=== PATIENT | female | born 1995 | race Caucasian/White ===

== ENCOUNTER → 2017-02-15 | Outpatient (CLI) | payer MEDICAID ==
--- NOTE | 2017-02-15 16:38 | REP ---
Clinical: Anatomical evaluation. Comparison: None . Findings: Examination demonstrates a single live intrauterine in transverse (head to the maternal right side) presentation. motion is identified by technologist. Placenta is noted anteriorly and grade zero without evidence for placenta previa or abruption. Amniotic fluid volume is normal. Cervix measures 4.8 cm in length and appears closed. No evidence for nuchal cord. Gestational age by current measurements 16 weeks 1 day with RAMON 08/01/2017. FHR equals 139 beats per minute. BPD 3.2 cm 16 weeks 0 days HC 12.6 cm 16 weeks 2 days AC 9.8 cm 15 weeks 6 days FL 2.1 cm 16 weeks 1 day HL 2.1 cm 16 weeks 3 days HC/AC ratio 1.28 Estimated weight 143 grams ( 39th percentile). Anatomical assessment demonstrates normal structures including cranium, lungs, four-chamber heart/ventricular outflow tracts, diaphragm, stomach and extremities. Impression: Single live intrauterine in transverse lie. While no gross abnormalities are identified, anatomical assessment is incomplete and should be reevaluated at 20-21 weeks. Signed by Raul Barraza MD 02/15/2017 04:30 P
== END ==
LOC: M LRY 14:10
PROVIDERS: ATTEND Nurse Practitioner Women's Health
DX: Z36 Encounter for antenatal screening of mother (principal)

== ENCOUNTER → 2017-04-03 | Outpatient (CLI) | payer MEDICAID, OTHER ==
--- NOTE | 2017-04-03 18:44 | REP ---
OB ULTRASOUND: Real-time sonographic evaluation of the gravid uterus is performed. There is a single living intrauterine gestation. The estimated gestational age is 22 weeks 6 days. EDC 08/01/2017. Today's measurements indicate appropriate growth. BPD 58 mm = 23 weeks 4 days, at the 70th percentile. HC 211 mm = 23 weeks 1 day, at the 60th percentile. AC 191 mm = 23 weeks 6 days, at the 71st percentile. Femur length 41 mm = 23 weeks 2 days, at the 62nd percentile. HC/AC ratio 1.10 within normal range. Estimated weight 6084 grams at the 68th percentile. heart rate 147 beats per minute. SEEN/GROSSLY UNREMARKABLE Lateral ventricles Yes Posterior fossa Yes Upper lip Yes Four-chamber heart Yes LVOT Yes RVOT Yes Stomach Yes Cord insertion Yes Three vessel cord Yes Kidneys Yes Bladder Yes Spine Yes position: Variable. Placenta: Anterior and grade 1 with no previa or abruption. Amniotic fluid: Within normal limits. Cervix is closed and measures 3.8 cm in length. Signed by Kuldip Hancock MD 04/04/2017 04:52 P
== END ==
LOC: M LRY 14:01
PROVIDERS: ATTEND Nurse Practitioner Women's Health
DX: Z33.1 Pregnant state, incidental (principal); Z36 Encounter for antenatal screening of mother

== ENCOUNTER → 2017-12-04 | Outpatient (REF) | payer OTHER | LOC: M SFHCLERA 15:51 | DX: J02.9 Acute pharyngitis, unspecified (principal) ==

== ENCOUNTER → 2018-02-08 | Outpatient (CLI) | payer OTHER ==
[2018-02-08 21:37] LABS: HCG, SERUM QUANTITATIVE 18253 MIU/ML
== END ==
LOC: M LAB 20:10
DX: Z34.81 Encounter for supervision of other normal pregnancy, first trimester (principal)
CPT/HCPCS: 84702

== ENCOUNTER → 2018-02-12 | Outpatient (CLI) | payer OTHER | LOC: M RAD 14:25 | DX: Z34.81 Encounter for supervision of other normal pregnancy, first trimester (principal); Z3A.01 Less than 8 weeks gestation of pregnancy | CPT/HCPCS: 76801 ==

== ENCOUNTER → 2018-05-21 | Outpatient (CLI) | payer OTHER | LOC: M RAD 11:25 | DX: Z34.82 Encounter for supervision of other normal pregnancy, second trimester (principal); Z3A.20 20 weeks gestation of pregnancy | CPT/HCPCS: 76811 ==

== ENCOUNTER → 2018-06-18 | Outpatient (CLI) | payer OTHER | LOC: M RAD 06:35 | DX: Z34.92 Encounter for supervision of normal pregnancy, unspecified, second trimester (principal); Z36.89 Encounter for other specified antenatal screening; Z3A.24 24 weeks gestation of pregnancy | CPT/HCPCS: 76816 ==

== ENCOUNTER 2019-03-19 22:35 | Emergency (ER) | payer OTHER ==
[~2019-03-19] VITALS: Ht 152.4 cm; Wt 75.9 kg
[2019-03-19] MEDS ORDERED: MIRE1IUD IU (22:48)
[2019-03-20] MEDS ORDERED: IBUP-1114 PO (00:17)
[2019-03-20 00:24] VITALS: BP 132/84
--- NOTE | 2019-03-20 08:13 | REP ---
CT Head without contrast HISTORY: Trauma COMPARISON: 09/13/2009 The examination is available for review at 08:10 a.m. 03/20/2019 There is no intraparenchymal hemorrhage, acute infarct, mass or midline shift. The ventricular system is normal in appearance. There is no extra cerebral collection. There is no fracture. The visualized sinuses are clear. IMPRESSION: There is no intracranial lesion. Electronically Signed by Harris Newton MD 03/20/2019 08:04 A
--- NOTE | 2019-03-20 08:23 | REP ---
MAXILLOFACIAL CT WITHOUT CONTRAST: HISTORY: Trauma. The examination is available for review at 8:15 a.m. 03/20/2019. Minimal mucosal thickening is present in the maxillary sinuses. The remaining sinuses are clear. The ostiomeatal units are patent. The middle and inferior nasal turbinates are partially paradoxical. There is frances bullosa of the right middle nasal turbinate. There is minimal deviation of the nasal septum to the left. A spur is present arising from the left side of the nasal septum. The spur abuts the left middle nasal turbinate. The cribriform plate, medial espino of the orbits and optic canals are intact. The carotid canals form a segment of the posterolateral espino of the sphenoid sinus. The sphenoid sinus septum inserts into the right internal carotid canal wall. There is no fracture. IMPRESSION: Sinus mucosal thickening as described above. Electronically Signed by Harris Newton MD 03/20/2019 08:30 A
== END 2019-03-20 00:25 | disposition home or self-care (01) ==
LOC: M ED 22:35
DX: S09.93XA Unspecified injury of face, initial encounter (principal); W50.0XXA Accidental hit or strike by another person, initial encounter; Y92.9 Unspecified place or not applicable; Y93.9 Activity, unspecified; Y99.9 Unspecified external cause status; Z87.891 Personal history of nicotine dependence; Z79.3 Long term (current) use of hormonal contraceptives

== ENCOUNTER 2019-04-26 20:51 | Emergency (ER) | payer OTHER ==
[~2019-04-26 20:51] MED LIST: IBUP-1114 PO; MIRE1IUD IU
[2019-04-26] MEDS ORDERED: KETOROLAC 30 MG/ML VIAL (J1885) IV ONE (21:15)
[2019-04-26] MEDS ORDERED: ONDANSETRON 4MG/2ML VIAL (J2405) IV ONE (21:15)
[2019-04-26 21:21] LABS: BASO # 0.1 10^3/uL (0.0-0.2); BASO % 0.7 % (0.0-1.0); EOS # 0.2 10^3/uL (0.0-0.50); EOS % 1.6 % (0.0-3.0); HEMATOCRIT 45.1 % (36.0-47.0); HEMOGLOBIN 14.7 g/dl (12.0-15.5); LYMPH # 2.8 10^3/uL (1.5-6.5); LYMPH % 29.6 % (24.0-44.0); MEAN CORPUSCULAR HEMOGLOBIN 30.1 pg (27.0-33.0); MEAN CORPUSCULAR HGB CONC 32.6 g/dl (32.0-36.5); MEAN CORPUSCULAR VOLUME 92.4 fl (80.0-96.0); MONO # 0.9 10^3/uL (0.0-0.8); MONO % 8.9 % (0.0-5.0); NEUTROPHILS # 5.6 10^3/uL (1.8-7.7); NEUTROPHILS % 58.9 % (36.0-66.0); PLATELET COUNT, AUTOMATED 219 10^3/uL (150-450); RED BLOOD COUNT 4.88 10^6/uL (4.00-5.40); WHITE BLOOD COUNT 9.6 10^3/uL (4.0-10.0)
[2019-04-26 21:42] LABS: ALBUMIN 3.6 GM/DL (3.2-5.2); ALT/SGPT 40 U/L (12-78); BILIRUBIN,DIRECT 0.2 MG/DL (0.0-0.2); BILIRUBIN,TOTAL 0.7 MG/DL (0.2-1.0); BLOOD UREA NITROGEN 13 MG/DL (7-18); CALCIUM LEVEL 8.7 MG/DL (8.5-10.1); CARBON DIOXIDE LEVEL 27 MEQ/L (21-32); CHLORIDE LEVEL 105 MEQ/L (98-107); CREATININE FOR GFR 0.82 MG/DL (0.55-1.30); GLOMERULAR FILTRATION RATE > 60.0 (>60); GLUCOSE, FASTING 93 MG/DL (70-100); LIPASE 184 U/L (73-393); SODIUM LEVEL 139 MEQ/L (136-145); TOTAL PROTEIN 7.7 GM/DL (6.4-8.2)
[2019-04-26 21:45] LABS: HCG, SERUM QUALITATIVE NEGATIVE (NEGATIVE)
[2019-04-26 22:31] VITALS: BP 109/59
[2019-04-26] MEDS ORDERED: DICY10CA13 PO (22:36)
[2019-04-26] MEDS ORDERED: DICYCLOMINE 10 MG CAP PO ONE (23:15)
--- NOTE | 2019-04-27 07:36 | REP ---
Clinical: Right upper quadrant pain. Technique: Real time perez scale ultrasound examination using curved array transducer. Findings: The gallbladder is moderately distended and demonstrates sludge and stones without wall thickening, pericholecystic fluid, or sonographic Glynn's sign. There is evidence for common bile duct dilatation to 8.8 mm. Liver and visualized pancreas are normal. The right kidney is unremarkable and without hydronephrosis measuring 11.2 x 4.0 x 3.8 cm. No ascites. Impression: Cholelithiasis and dilated common bile duct concerning for choledocholithiasis raising the possibility of early acute cholecystitis. Close clinical observation may be warranted. Electronically Signed by Raul Barraza MD 04/27/2019 07:28 A
--- NOTE | 2019-04-27 09:40 | ED PDOC ---
Post-Departure Follow-Up mahesh gonzalez and dolores faxed formal report of gb fu Kedar Bourgeois MD Apr 27, 2019 09:40
== END 2019-04-26 23:21 | disposition home or self-care (01) ==
LOC: EEVIPCON 20:51 → M ED 20:51
DX: K80.50 Calculus of bile duct without cholangitis or cholecystitis without obstruction (principal); R11.0 Nausea; Z79.3 Long term (current) use of hormonal contraceptives
CPT/HCPCS: 76705; 80048; 80076; 81001; 83690; 84703; 85025; 96374; 96375; 99284; J1885; J2405

== ENCOUNTER → 2019-05-08 | Outpatient (REF) | payer OTHER ==
[~2019-05-08] MED LIST changes: +DICY10CA13 PO
[2019-05-09 12:21] LABS: HEPATITIS B SURFACE ANTIGEN NEGATIVE (NEGATIVE); HEPATITIS C VIRUS ABY INDEX 0.1 INDEX (<0.8); HIV 1&2 SCREEN CENTAUR NEGATIVE (NEGATIVE)
[2019-05-10 00:07] LABS: HSV IgM TYPES 1&2 1.11 Ratio (0.00-0.90); HSV TYPE I IgG SPECIFIC <0.91 index (0.00-0.90)
== END ==
LOC: M LAB REF 12:32
PROVIDERS: ATTEND Nurse Practitioner Women's Health
DX: Z11.3 Encounter for screening for infections with a predominantly sexual mode of transmission (principal)

== ENCOUNTER 2019-06-19 06:02 | Day surgery (SDC) | payer OTHER ==
[~2019-06-19] VITALS: Ht 147.3 cm; Wt 75.7 kg
[~2019-06-19 06:02] MED LIST changes: +LR 1,000 ML IV SCH
[2019-06-19 06:52] LABS: URINE PREG TEST NEGATIVE (NEGATIVE)
[2019-06-19] MEDS ORDERED: BUPIVACAINE HCL 0.25% 30 ML VIAL As Ordered ONE (06:53)
[2019-06-19] MEDS ORDERED: CONRAY-60 60% 50ML VIAL (Q9961) As Ordered ONE (06:54)
[2019-06-19] MEDS ORDERED: ROCURONIUM BROMIDE 50 MG/5 ML VIAL As Ordered ONE ×2 (07:19→08:44)
[2019-06-19] MEDS ORDERED: ONDANSETRON 4MG/2ML VIAL (J2405) As Ordered ONE (07:19)
[2019-06-19] MEDS ORDERED: LIDOCAINE 2% INJ 100 MG/5 ML SDV (FOR ANES.) As Ordered ONE (07:19)
[2019-06-19] MEDS ORDERED: MIDAZOLAM INJ 2 MG/2 ML VIAL (J2250) As Ordered ONE (07:19)
[2019-06-19] MEDS ORDERED: dexameTHASONE 4 MG/ML 1ML VIAL (J1100) As Ordered ONE (07:19)
[2019-06-19] MEDS ORDERED: PROPOFOL 200 MG/20 ML VIAL As Ordered ONE (07:19)
[2019-06-19] MEDS ORDERED: fentaNYL 250 MCG/5 ML INJECTION (J3010) As Ordered ONE (07:19)
[2019-06-19] MEDS ORDERED: ACETAMINOPHEN 1000MG 100ML IV BTL (OFIRMEV) (J0131 PER 10MG) As Ordered ONE (07:55)
[2019-06-19] MEDS ORDERED: GLYCOPYRROLATE INJ 0.2 MG/ML 2 ML VIAL As Ordered ONE (07:55)
[2019-06-19] MEDS ORDERED: KETOROLAC 60 MG/2 ML VIAL (J1885) As Ordered ONE (07:55)
[2019-06-19] MEDS ORDERED: NEOSTIGMINE 10 MG/10 ML VIAL (J2710) As Ordered ONE (07:55)
[2019-06-19] MEDS ORDERED: MEPERIDINE INJ 25 MG/ML VIAL (J2175) IV PRN (10:30)
[2019-06-19] MEDS ORDERED: ACETAMINOPHEN TAB 650MG DOSE (2X325MG) PO PRN (10:30)
[2019-06-19] MEDS ORDERED: METOCLOPRAMIDE INJ 10MG/2ML VIAL (J2765) IV PRN (10:30)
[2019-06-19] MEDS ORDERED: fentaNYL 100 MCG/2 ML INJECTION (J3010) IV PRN (10:30)
[2019-06-19] MEDS ORDERED: LR 1,000 ML IV SCH (10:30)
[2019-06-19] MEDS ORDERED: ONDANSETRON 4MG/2ML VIAL (J2405) IV PRN (10:30)
[2019-06-19] MEDS ORDERED: IBUPROFEN 600 MG TAB PO PRN (10:30)
[2019-06-19] MEDS ORDERED: PERCOCET 5MG/325MG TAB PO PRN (10:30)
[2019-06-19 11:00] VITALS: BP 111/64
--- NOTE | 2019-06-19 13:07 | REP ---
C-ARM VIEWS DURING INTRAOPERATIVE CHOLANGIOGRAM: Multiple C-Arm views are performed during intraoperative cholangiogram. Contrast is injected into the common bile duct. The common bile duct as visualized demonstrates no filling defect. It does not appear to be dilated. No stricture is seen. Central intrahepatic ducts are unremarkable. There is contrast in the duodenum. 9 seconds fluoroscopy time utilized. Electronically Signed by Kuldip Hancock MD 06/19/2019 02:01 P
--- NOTE | 2019-06-21 15:06 | RO ---
DATE OF PROCEDURE: 06/19/2019 PREOPERATIVE DIAGNOSIS: Symptomatic gallstones and mildly dilated common bile duct. POSTOPERATIVE DIAGNOSIS: Symptomatic gallstones with normal intraoperative cholangiogram. PROCEDURE PERFORMED: Laparoscopic cholecystectomy with intraoperative cholangiogram with robotic assist. SURGEON: Dr. Loc Fortune. GEAR ROOM KEEPER: Rebeca Trimble, Nurse Practitioner who was essential for assistance with placement of the ports, changing of instruments and placement of the intraoperative cholangiogram catheter and closure of the incisions. ANESTHESIA: General. INDICATIONS FOR PROCEDURE: Patient is a 23-year-old woman who has had episodic upper abdominal pain. She was found to have cholelithiasis and her ultrasound suggested some enlargement of the common bile duct. She is now for a laparoscopic cholecystectomy with intraoperative cholangiogram, which will be performed as a robotic-assisted procedure. DESCRIPTION OF PROCEDURE: The patient was brought to the operating room and placed supine on the operating table. The patient's abdomen was prepped and draped in a sterile fashion. The left upper quadrant was selected as the site for the initial trocar placement. The incision was made after infiltration of local anesthesia, and this was utilized for the other incisions as well. A short transverse incision was made, and the Veress needle was inserted. After a positive hanging drop test, the abdomen was insufflated with carbon dioxide gas. An 8 mm robotic trocar was placed over a 5 mm scope, and this was advanced through the abdominal wall without difficulty. The scope was then inserted. Initial examination showed a normal appearing liver. Visualized portions of the stomach and small and large bowel were normal. Three additional 8 mm robotic ports were then placed just above the umbilicus, approximately 8 to 10 cm to the right and slightly below this and then in the far lateral right side of the abdomen slightly above the iliac crest. The [facility] patient cart was brought into position, and the camera port was docked and targeting took place. A hook cautery was placed through the left upper quadrant port and a Force Bipolar and grasping retractor were placed through the two right-sided ports. I then moved to the control console. At this point, the patient was tilted to a reverse Trendelenburg position and rolled to the left. The edge of the liver was elevated and the gallbladder was grasped and elevated. There were a few minor adhesions to the gallbladder, and these were lysed with the cautery. The gallbladder was elevated further and dissection was then begun at the gallbladder neck. The peritoneum was opened widely to expose the cystic duct and the cholecystic artery. The artery was doubly clipped with hemoclips and divided. The cystic duct was nicked. I attempted to pass the Arrow balloon cholangiogram catheter with Rebeca Trimble's assistance through the lateral right-sided robotic port but was unable to get the catheter threaded adequately into the cystic duct. Therefore, we undocked the robot and moved this away, and a 5 mm port was placed high in the right upper quadrant. Using laparoscopic instruments, the cholangiogram catheter was inserted into the opening in the cystic duct and the balloon was inflated. The balloon appeared to be located in the common bile duct below the juncture of the cystic duct and common hepatic duct. The patient was returned to a flat position and cholangiograms were obtained using fluoroscopy with the injection of 30% Conray. The initial injection showed excellent filling of the common bile duct with free flow of contrast into the duodenum without any definite filling defects identified. The balloon was then deflated and additional injection of contrast was made, which filled the common hepatic duct and the intrahepatic radicals, and, again, showed free flow of contrast through the common bile duct into the duodenum. No filling defects were identified. There was excellent clearance of contrast from the duct system on a followup imaging several seconds later. The fluoroscopy unit was moved aside and the cholangiogram catheter was removed. The patient was returned to a reverse Trendelenburg position and rolled slightly to the left. The robot was redocked, and I returned to the control console. The cystic duct was doubly clipped and divided. The gallbladder was then dissected free from the gallbladder bed using cautery dissection. Before the gallbladder was completely freed, the suction electrician chief was inserted and a small amount of spilled bile and blood was irrigated and aspirated from the right upper quadrant. The gallbladder was then completely freed. A specimen retrieval bag was inserted, and the gallbladder was placed within the retrieval pouch. The string of the pouch was retrieved through the supraumbilical site. The robot was then undocked, and the patient was returned to a flat position. The trocars were used to vent the abdomen, and these were then removed. I returned to the bedside and removed the gallbladder. This necessitated extending the fascial incision and skin incisions slightly to allow passage of a 1-1/2 cm stone. The fascia was then closed with interrupted simple sutures of #2-0 Vicryl. The wounds were infiltrated with some additional 0.25% Marcaine. The skin incisions were all closed with buried Vicryl and Steri-Strips. Light dressings were applied. The patient tolerated the procedure well without apparent complication. She was awakened in the operating room, extubated and moved to the recovery room in stable condition.
== END 2019-06-19 11:13 | disposition home or self-care (01) ==
LOC: M SDC 06:02
PROVIDERS: ATTEND Surgery
DX: K80.10 Calculus of gallbladder with chronic cholecystitis without obstruction (principal); K21.9 Gastro-esophageal reflux disease without esophagitis; Z79.899 Other long term (current) drug therapy
CPT/HCPCS: 47563; 74300; 84703; 88304; J0131; J1100; J1885; J2250; J2405; J2710; J3010; Q9961

== ENCOUNTER 2020-05-13 04:00 | Emergency (ER) | payer OTHER ==
[~2020-05-13] VITALS: Ht 149.9 cm; Wt 84.6 kg
[2020-05-13 04:00] VITALS: BP 136/75
[~2020-05-13 04:00] MED LIST changes: -LR 1,000 ML IV SCH
[2020-05-13 04:41] LABS: BASO # 0.1 10^3/uL (0.0-0.2); BASO % 0.5 % (0.0-1.0); EOS # 0.2 10^3/uL (0.0-0.5); EOS % 1.8 % (0.0-3.0); HEMATOCRIT 42.2 % (36.0-47.0); HEMOGLOBIN 13.9 g/dl (12.0-15.5); LYMPH # 3.2 10^3/uL (1.5-5.0); LYMPH % 29.1 % (24.0-44.0); MEAN CORPUSCULAR HEMOGLOBIN 30.4 pg (27.0-33.0); MEAN CORPUSCULAR HGB CONC 32.9 g/dl (32.0-36.5); MEAN CORPUSCULAR VOLUME 92.3 fl (80.0-96.0); NEUTROPHILS # 6.6 10^3/uL (1.5-8.5); NEUTROPHILS % 59.3 % (36.0-66.0); PLATELET COUNT, AUTOMATED 203 10^3/uL (150-450); RED BLOOD COUNT 4.57 10^6/uL (4.00-5.40); WHITE BLOOD COUNT 11.1 10^3/uL (4.0-10.0)
[2020-05-13 05:11] LABS: ALBUMIN 3.4 GM/DL (3.2-5.2); BILIRUBIN,DIRECT 0.2 MG/DL (0.0-0.2); BILIRUBIN,TOTAL 0.6 MG/DL (0.2-1.0); TOTAL PROTEIN 7.2 GM/DL (6.4-8.2)
[2020-05-13] MEDS ORDERED: ISOVUE-370 76% 100ML VIAL As Ordered ONE (05:24)
[2020-05-13] MEDS ORDERED: KETOROLAC 30 MG/ML 1ML VIAL IV ONE (05:30)
--- NOTE | 2020-05-13 06:05 | REPVR ---
PROCEDURE INFORMATION: Exam: CT Abdomen And Pelvis With Contrast Exam date and time: 05/13/2020 5:18 AM Age: 24 years old Clinical indication: Abdominal pain; Localized; Left lower quadrant (llq); Additional info: Llq abd pain TECHNIQUE: Imaging protocol: Computed tomography of the abdomen and pelvis with intravenous contrast. Radiation optimization: All CT scans at this facility use at least one of these dose optimization techniques: automated exposure control; mA and/or kV adjustment per patient size (includes targeted exams where dose is matched to clinical indication); or iterative reconstruction. Contrast material: ISO; Contrast volume: 100 ml; Contrast route: INTRAVENOUS (IV); COMPARISON: CT ABD PELVIS WITH CONTRAST 06/02/2016 9:02 PM FINDINGS: Lungs: There is minimal bilateral posterior dependent lung atelectasis. Liver: Normal. No mass. Gallbladder and bile ducts: The patient is status post cholecystectomy. There is no biliary ductal dilatation. Pancreas: Normal. No ductal dilation. Spleen: Normal. No splenomegaly. Adrenals: Normal. No mass. Kidneys and ureters: Normal. No hydronephrosis. Stomach and bowel: There is transverse, descending and sigmoid colon diverticulosis. There is thickening of the descending colon with surrounding stranding. Appendix: No evidence of appendicitis. Intraperitoneal space: Unremarkable. No free air. No significant fluid collection. Vasculature: Unremarkable. No abdominal aortic aneurysm. Lymph nodes: Unremarkable. No enlarged lymph nodes. Bladder: Unremarkable as visualized. Reproductive: IUD seen in place. Bones/joints: Unremarkable. No acute fracture. Soft tissues: Unremarkable. IMPRESSION: 1. Transverse, descending and sigmoid colon diverticulosis with CT findings of descending diverticulitis. No free peritoneal air or abscess formation seen at this time. 2. IUD in place. 3. Status post cholecystectomy. Electronically signed by: Francisco Amos On 05/13/2020 06:05:09 AM
[2020-05-13] MEDS ORDERED: CIPROFLOXACIN 500MG TABLET PO ONE (06:45)
[2020-05-13] MEDS ORDERED: metroNIDAZOLE (FLAGYL) 500 MG TAB PO ONE (06:45)
[2020-05-13] MEDS ORDERED: CIPR-249 PO (06:46)
[2020-05-13] MEDS ORDERED: FLAG500T PO (06:46)
== END 2020-05-13 06:53 | disposition home or self-care (01) ==
LOC: M ED 04:00
DX: K57.32 Diverticulitis of large intestine without perforation or abscess without bleeding (principal); K57.30 Diverticulosis of large intestine without perforation or abscess without bleeding; J98.11 Atelectasis; Z97.5 Presence of (intrauterine) contraceptive device
CPT/HCPCS: 74177; 80047; 80076; 83690; 84702; 85025; 93041; 96374; 99284; J1885; Q9967

== ENCOUNTER → 2020-09-22 | Outpatient (CLI) | payer OTHER ==
[~2020-09-22] MED LIST changes: +CIPR-249 PO; +FLAG500T PO
[2020-09-22 16:45] LABS: BASO % 0.5 % (0.0-1.0); EOS # 0.1 10^3/uL (0.0-0.5); EOS % 0.9 % (0.0-3.0); HEMATOCRIT 45.1 % (36.0-47.0); HEMOGLOBIN 14.6 g/dl (12.0-15.5); LYMPH # 3.1 10^3/uL (1.5-5.0); LYMPH % 41.5 % (24.0-44.0); MEAN CORPUSCULAR HEMOGLOBIN 31.1 pg (27.0-33.0); MEAN CORPUSCULAR HGB CONC 32.4 g/dl (32.0-36.5); MONO # 0.7 10^3/uL (0.0-0.8); MONO % 9.2 % (0.0-5.0); NEUTROPHILS # 3.6 10^3/uL (1.5-8.5); NEUTROPHILS % 47.8 % (36.0-66.0); PLATELET COUNT, AUTOMATED 237 10^3/uL (150-450); WHITE BLOOD COUNT 7.4 10^3/uL (4.0-10.0)
[2020-09-22 17:22] LABS: ALBUMIN 3.9 GM/DL (3.2-5.2); ALT/SGPT 24 U/L (12-78); BILIRUBIN,TOTAL 1.4 MG/DL (0.2-1.0); BLOOD UREA NITROGEN 11 MG/DL (7-18); CALCIUM LEVEL 9.3 MG/DL (8.5-10.1); CARBON DIOXIDE LEVEL 26 MEQ/L (21-32); CHLORIDE LEVEL 107 MEQ/L (98-107); CREATININE FOR GFR 0.92 MG/DL (0.55-1.30); FERRITIN 73 NG/ML (8-252); GLOMERULAR FILTRATION RATE > 60.0 (>60); GLUCOSE, FASTING 75 MG/DL (70-100); POTASSIUM SERUM 4.3 MEQ/L (3.5-5.1); SODIUM LEVEL 138 MEQ/L (136-145); TOTAL PROTEIN 7.7 GM/DL (6.4-8.2)
[2020-09-22 18:44] LABS: ERYTHROCYTE SEDIMENTATION RATE 6 mm/hr (0-20)
== END ==
LOC: M WUC 12:10
PROVIDERS: ATTEND Family Medicine
DX: D64.9 Anemia, unspecified (principal); K57.92 Diverticulitis of intestine, part unspecified, without perforation or abscess without bleeding

== ENCOUNTER → 2020-09-23 | Outpatient (REF) | payer OTHER | LOC: M SFHCLERA 14:51 | PROVIDERS: ATTEND Family Medicine | DX: K57.92 Diverticulitis of intestine, part unspecified, without perforation or abscess without bleeding (principal); D64.9 Anemia, unspecified ==

== ENCOUNTER → 2020-10-07 | Outpatient (CLI) | payer SELFPAY | LOC: M LABSMTC 13:00 | PROVIDERS: ATTEND Pediatrics | DX: Z20.828 Contact with and (suspected) exposure to other viral communicable diseases (principal) ==

== ENCOUNTER → 2020-10-18 | Outpatient (CLI) | payer OTHER ==
--- NOTE | 2020-10-19 12:49 | ECHO ---
DATE OF PROCEDURE: 10/18/2020 Age: 25 Gender: F Height: 149 cm Weight: 80 kg REFERRING PHYSICIAN: Linda Cabrera MD INDICATION: Palpitations MEASUREMENTS: IVS 0.8 LV 4.6 LVPW 0.8 LA 3.2 Aorta 2.8 RV 3.1 IVC 1.6 Mitral E wave velocity is 83; A wave 70 E prime septal 11.1 E prime lateral 15.0 FINDINGS: This study is of acceptable technical quality. Underlying sinus rhythm. Left ventricle has normal size and systolic function with estimated ejection fraction (EF) around 60-65%. No segmental wall motion abnormalities are appreciated. Right ventricle appears normal. Both atria appear normal. All four cardiac valves are reasonably well seen and appear normal. No pericardial effusion is noted. Inferior vena cava is of normal size and appropriately collapses with inspiration indicative of normal central venous pressure. Aortic root and aortic arch appear normal. Doppler interrogation reveals competent aortic valve. There is also competent mitral valve. There is trace tricuspid and pulmonic insufficiency. Calculated pulmonary artery pressure is within normal limits. Mitral inflow pattern and tissue Doppler imaging of mitral annulus revealed normal diastolic dysfunction. CONCLUSIONS: 1. Study is of acceptable technical quality; patient is in sinus rhythm. 2. Normal left ventricle size, systolic and diastolic function. 3. Normal right ventricle (RV) size. 4. No significant valvular disease. 5. Normal central venous pressure and likely normal pulmonary artery pressure. COMMENTS: Essentially normal echocardiogram. [facility]
== END ==
LOC: M CARPUL 10:39
PROVIDERS: ATTEND Family Medicine
DX: R00.2 Palpitations (principal)

== ENCOUNTER → 2020-12-18 | Outpatient (CLI) | payer OTHER | LOC: M LABSMTC 11:26 | PROVIDERS: ATTEND Anesthesiology | DX: Z01.812 Encounter for preprocedural laboratory examination (principal); Z20.822 Contact with and (suspected) exposure to COVID-19 ==

== ENCOUNTER 2020-12-23 06:47 | Day surgery (SDC) | payer OTHER ==
[~2020-12-23] VITALS: Ht 149.9 cm; Wt 83.5 kg
[~2020-12-23 06:47] MED LIST changes: +UNRESOLVED CLARIFICATION ENTRY XX SCH
--- OUTSIDE RECORDS SUMMARY | 2020-12-23 06:51 | CCD | Continuity of Care Document ---
Author Author Trang MADRID M.D. Organization Unknown Address [address], [address] [place] [address] Phone [phone] Care Team Providers Care Pecan Grower Name Role Phone Kuldip Boyce M.D. AUTM [phone] Linda Cabrera M.D. AUTM [phone] AUTM Unavailable Problems Description No Information Available Social History Type Date Description Comments Sex Unknown ETOH Use 1-3 glasses of wine per wk Recreational Drug Use Denies Drug Use Tobacco Use Start: Unknown End: Unknown Patient is a former smoker QUIT 2014 Allergies, Adverse Reactions, Alerts Description No Known Drug Allergies Medications Active Medications SIG Qnty Indications Ordering Provide r Date Valacyclovir HCL 1gm Tablets 1tab po qd Unknown Immunizations Description No Information Available Vital Signs Date Vital Result Comment 12/08/2020 9:57am BP Systolic 116 mmHg BP Diastolic 62 mmHg Height 59 inches 4'11" Weight 188.00 lb BMI (Body Mass Index) 38.0 kg/m2 Wilbur Body Weight 100 lb Weight 85.277 kg BSA (Body Surface Area) 1.80 m2 06/30/2019 10:37am BP Systolic 118 mmHg BP Diastolic 78 mmHg Height 59 inches 4'11" Weight 165.00 lb BMI (Body Mass Index) 33.3 kg/m2 Wilbur Body Weight 100 lb Weight 74.844 kg BSA (Body Surface Area) 1.70 m2 Results Description No Information Available Procedures Description No Information Available Medical Devices Description No Information Available Encounters Description No Information Available Assessments Description No Information Available Plan of Treatment No Information Available Functional Status Description No Information Available Mental Status Description No Information Available Referrals Refer to Reason for Referral Status Appt Date Uriel Madrid M.D. dx colitis 2018, diverticulitis 2 020, possible IBD Created 12/08/[address] [place] [address], [address] [place] [address] [phone]
--- OUTSIDE RECORDS SUMMARY | 2020-12-23 06:51 | CCD ---
Author Author [facility] Organization [facility] Address Unknown Phone Unavailable Care Team Providers Care Shopfitter Name Role Phone Linda Cabrera Unavailable PROBLEMS Type Condition ICD9-CM Code JSI75-IB Code Onset Dates Condition S tatus SNOMED Code Notes Problem Diverticulitis K57.92 Active 038827562 Problem Anxiety F41.9 Active 07803023 Problem Calculus of gallbladder without cholecystitis wi thout obstruction K80.20 Active 326071468 Problem Class 1 obesity without seri ous comorbidity in adult, unspecified BMI, unspecified obesity type E66.9 Active 571059578 ALLERGIES No Known Allergies ENCOUNTERS from 1994 to 2020-10-27 Encounter Location Date Provider Diagnosis [facility] [address] [place] [address], Lnida Cabrera IMMUNIZATIONS Vaccine Route Administration Date Status Influenza (6mo & up) Fluzone Unknown Nov 26, 2014 Adm inistered Influenza (6mo & up) Fluzone Unknown Oct 26, 2014 Ref used SOCIAL HISTORY Tobacco Use: Social History Observation Description Date Details (start date - stop date) Former Smoker Sex Assigned At : Social History Observation Description Sex Assigned At Unknown Education: Question Answer Notes Level of Education: High School Audit Question Answer Notes Total Score: 0 Interpretation: Alcohol Education Language: Question Answer Notes Languages spoken: Polish Bahai: Question Answer Notes Bahai 33 None Sexual Hx: Question Answer Notes Had sex in the last 12 months (vaginal, oral, or anal)? Yes Have you ever had an STD? No Prevention Strategies discussed: Other with Men only Use protection? No Drug and Alcohol Question Answer Notes Total Score: 0 Interpretation: No problems reported Alcohol Screening: Question Answer Notes Did you have a drink containing alcohol in the past year? Ye s Points 1 Interpretation Negative How often did you have six or more drinks on one occas ion in the past year? Never (0 points) How many drinks did you have on a typica l day when you were drinking in the past year? 1 or 2 (0 points) How often did you have a drink containing alcohol in t he past year? Monthly or less (1 point) Tobacco Use: Question Answer Notes Are you a: former smoker How long has it been since you last smoked? 1-5 years REASON FOR REFERRAL No Information VITAL SIGNS No information MEDICATIONS Medication SIG (Take, Route, Frequency, Duration) Notes Start Da te End Date Status Motrin 800 MG 1 tablet with food or milk as needed Orally Three malachi es a day Active Mirena Active Valacyclovir HCl 1 GM TAKE ONE TABLET BY MOUTH TWI CE A DAY FOR 5 DAYS THEN 1 PER DAY NEEDED Oral for 25 Active Tylenol Extra Strength 500 MG 1 tablet as needed Orally every 6 hrs Active PROCEDURES No Information RESULTS No Results REASON FOR VISIT Normal Echo MEDICAL (GENERAL) HISTORY Type Description Date Surgical History tubes in ears childhood Surgical History gall bladder removed 05/2019 Hospitalization History child 07/31/2017 Hospitalization History child 11/17/2015 Hospitalization History child 10/09/2018 Goals Section No Information Health Concerns No Information MEDICAL EQUIPMENT No Information MENTAL STATUS No Information FUNCTIONAL STATUS No Information ASSESSMENTS No Information PLAN OF TREATMENT No Information Insurance Providers Payer Name Payer Address Payer Phone Insured Name Patient Relati onship to Insured Coverage Start Date Coverage End Date [facility] [employer] [facility] [address] [facility] [phone] [place] self
--- OUTSIDE RECORDS SUMMARY | 2020-12-23 06:52 | CCD ---
Author Author [facility] Organization [facility] Address Unknown Phone Unavailable Care Team Providers Care Railroad Yard Worker Name Role Phone ROXY DO, K ANDREW Unavailable Unavailable ROXY DO, K ANDREW Unavailable Unavailable ROXY DO, K ANDREW Unavailable Unavailable Hadian, Lance Unavailable Unavailable Hadian, Lance Unavailable Unavailable Hadian, Lance Unavailable Unavailable Hadian, Lance Unavailable Unavailable Hadian, Lance Unavailable Unavailable Hadian, Lance Unavailable Unavailable Hadian, Lance Unavailable Unavailable Hadian, Lance Unavailable Unavailable Hadian, Lance Unavailable Unavailable Hadian, Lance Unavailable Unavailable Hadian, Lance Unavailable Unavailable Hadian, Lance Unavailable Unavailable Hadian, Lance Unavailable Unavailable Hadian, Lance Unavailable Unavailable Hadian, Lance Unavailable Unavailable Hadian, Lance Unavailable Unavailable Hadian, Lance Unavailable Unavailable Hadian, Lance Unavailable Unavailable Hadian, Lance Unavailable Unavailable Hadian, Lanec Unavailable Unavailable Hadian, Lance Unavailable Unavailable Hadian, Lance Unavailable Unavailable Hadian, Lance Unavailable Unavailable Hadian, Lance Unavailable Unavailable Hadian, Lance Unavailable Unavailable Hadian, Lance Unavailable Unavailable Hadian, Lance Unavailable Unavailable Hadian, Lance Unavailable Unavailable Hadian, Lance Unavailable Unavailable Hadian, Lance Unavailable Unavailable Hadian, Lance Unavailable Unavailable Hadian, Lance Unavailable Unavailable Hadian, Lance Unavailable Unavailable Re-disclosure Warning The records that you are about to access may contain information from federally-assisted alcohol or drug abuse programs. If such information is present, then the following federally mandated warning applies: This information has been disclosed to you from records protected by federal confidentiality rules (42 CFR part 2). The federal rules prohibit you from making any further disclosure of this information unless further disclosure is expressly permitted by the written consent of the person to whom it pertains or as otherwise permitted by 42 CFR part 2. A general authorization for the release of medical or other information is NOT sufficient for this purpose. The Federal rules restrict any use of the information to criminally investigate or prosecute any alcohol or drug abuse patient.The records that you are about to access may contain highly sensitive health information, the redisclosure of which is protected by Article 27-F of the [facility] Public Health law. If you continue you may have access to information: Regarding HIV / AIDS; Provided by facilities licensed or operated by the [facility] Office of Mental Health; or Provided by the [facility] Office for People With Developmental Disabilities. If such information is present, then the following [facility] mandated warning applies: This information has been disclosed to you from confidential records which are protected by state law. State law prohibits you from making any further disclosure of this information without the specific written consent of the person to whom it pertains, or as otherwise permitted by law. Any unauthorized further disclosure in violation of state law may result in a fine or care home sentence or both. A general authorization for the release of medical or other information is NOT sufficient authorization for further disc losure. Family History Family Member Name Family Member Gender Family Member Status Date o f Status Description Data Source(s) Unknown Male Problem [facility] Encounters Encounter Providers Location Date Indications Data Source(s ) Unknown [id number] [facility] [place] [address] 10/26/2020 12:00:00 AM EST eCW1 ([facility]) Outpatient CPSCAORT-LABEJN 07/30/2020 02:21:00 PM EDT [facility] Outpatient Attender: Lance Elena ED-LABPNP 0 12:43:00 PM EDT - 07/30/2020 12:44:00 PM EDT PRE CLINICAL [facility] PRE CLINICAL Patient discharged. Emergency Attender: ANDREW MUSTAFA DO ES1-ES 020 11:10:56 PM EDT - 05/26/2020 03:08:00 AM EDT [facility] Patient discharged. Medications Medication Brand Name Start Date Product Form Dose Route Admi nistrative Instructions Pharmacy Instructions Status Indications Reaction Description Data Source(s) 17.5-3.13-1.6 gram 12/15/2020 12:00:00 AM EST recon soln 354 DIRECTED FOR COLONOSCOPY PREP DIRECTED FOR COLONOSCOPY PREP SOLD: 12/20/2020 [facility] 5 mg 12/14/2020 12:00:00 AM EST tablet,delayed release (DR/EC) 4 TAKE 4 TABLETS BY MOUTH ONCE PER BOWEL PREP INSTRUCTIONS TAKE 4 TABLETS BY MOUTH ONCE PER BOWEL PREP INSTRUCTIONS SOLD: 12/20/2020 [facility] 800 mg 10/06/2020 12:00:00 AM EST tablet 30 TAKE ONE TABLET BY MOUTH THREE TIMES A DAY FOR 10 DAYS TAKE ONE TABLET BY MOUTH THREE TIMES A DAY FOR 10 DAYS SOLD: 10/06/2020 [facility] 1 gram 06/22/2020 12:00:00 AM EDT tablet 30 TAKE ONE TABLET BY MOUTH TWICE A DAY FOR 5 DAYS THEN 1 PER DAY NEEDED TAKE ONE TABLET BY MOUTH TWICE A DAY FOR 5 DAYS THEN 1 PER DAY NEEDED SOLD: 10/27/2020 [facility] 1 gram 06/22/2020 12:00:00 AM EDT tablet 30 TAKE ONE TABLET BY MOUTH TWICE A DAY FOR 5 DAYS THEN 1 PER DAY NEEDED TAKE ONE TABLET BY MOUTH TWICE A DAY FOR 5 DAYS THEN 1 PER DAY NEEDED SOLD: 06/22/2020 [facility] 1 gram 06/22/2020 12:00:00 AM EDT tablet 30 TAKE ONE TABLET BY MOUTH TWICE A DAY FOR 5 DAYS THEN 1 PER DAY NEEDED TAKE ONE TABLET BY MOUTH TWICE A DAY FOR 5 DAYS THEN 1 PER DAY NEEDED SOLD: 08/30/2020 [facility] 1 gram 06/22/2020 12:00:00 AM EDT tablet 30 TAKE ONE TABLET BY MOUTH TWICE A DAY FOR 5 DAYS THEN 1 PER DAY NEEDED TAKE ONE TABLET BY MOUTH TWICE A DAY FOR 5 DAYS THEN 1 PER DAY NEEDED SOLD: 07/24/2020 [facility] iopamidol (ISOVUE-370) 76 % 70 mL 10030 05/26/2020 12:51:49 AM E DT 70 mL Intravenous completed 70 mL, Intrav enous, Once in imaging, contrast, Starting Sun05/26/20 at 0051, For 1 dose [facility] Medication administered onsite ondansetron (ZOFRAN) injection 4 mg 07529-360-25 05/26/2020 12:10:0 0 AM EDT 4 mg Intravenous completed 4 mg, In travenous, Once, Sun05/26/20 at 0010, For 1 dose [facility] Medication administered onsite 1 gram 05/20/2020 12:00:00 AM EDT tablet 30 TAKE ONE TABLET BY MOUTH TWICE A DAY FOR 5 DAYS THEN 1 PER DAY NEEDED TAKE ONE TABLET BY MOUTH TWICE A DAY FOR 5 DAYS THEN 1 PER DAY NEEDED SOLD: 05/21/2020 [facility] 500 mg 05/13/2020 12:00:00 AM EDT tablet 14 TAKE ONE TABLET BY MOUTH TWICE A DAY TAKE ONE TABLET BY MOUTH TWICE A DAY SOLD: 05/13/2020 [facility] 500 mg 05/13/2020 12:00:00 AM EDT tablet 30 TAKE ONE TABLET BY MOUTH EVERY 8 HOURS TAKE ONE TABLET BY MOUTH EVERY 8 HOURS SOLD: 05/13/2020 [facility] 500 mg 06/11/2019 12:00:00 AM EDT tablet 10 TAKE ONE TABLET BY MOUTH TWICE A DAY FOR 5 DAYS TAKE ONE TABLET BY MOUTH TWICE A DAY FOR 5 DAYS SOLD: 2019 [facility] Insurance Providers Payer name Policy type / Coverage type Policy ID Covered democrat ID Covered democrat's relationship to jimenez Policy Jimenez Plan Information COUNTS INCLUDE 234 BEDS AT THE [facility] COMMUNITY PLAN [facility] [id number] SELF PAY ONLY [id number] SP [id number] [facility] [id number] S [id number] SELF PAY S [facility](MCA[facility]) O [id number] S [id number] [facility] MEDICAID [id number] Melisa [id number] 70 [facility] MEDICAID [id number] [facility] Health Maintenance Organization (HMO) [id number] Self [id number] ANSI-Medicaid [id number] ANSI-Medicaid [id number] [facility] [id number] ANSI-Medicaid [id number] ANSI-Medicaid [id number] [employer]HC COMMUNITY PLAN XIX -I/P [id number] 18 [id number] UNHC COMMUNITY PLAN XIX [id number] 18 [id number] UNHC COMMUNITY PLAN MCDO [id number] SP [id number] UNHC COMMUNITY PLAN MCDO [id number] SP [id number] MEDICAID [id number] SP [id number] [facility]) O [id number] S [id number] MEDICAID M [id number] S [id number] [place] PPO [id number] SP [id number] [place] BCBS B [id number] S [id number] BLUE CROSS BLUE SHIELD -I/P [id number] 18 [id number] BLUE CROSS BLUE SHIELD -O/P [id number] 18 [id number] MEDICAID [id number] SP [id number] MEDICAID M [id number] S [id number] [facility] [place] [facility]/806 [id number] SP [id number] [employer]ENEF[employer] ADMINIS [id number] SP [id number] [employer]ENEF[employer] ADMINS [id number] SP [id number] Problems, Conditions, and Diagnoses Code Display Name Description Problem Type Effective Dates Data Source(s) F41.9 [id number] Anxiety Problem 09/17/2020 12:00:00 AM ED T eCW1 ([facility]) K57.92 [id number] Diverticulitis Problem 09/16/2020 12:00:00 A M EDT eCW1 ([facility]) R07.9 Chest pain, unspecified Chest pain, unspecified Diagno sis 05/25/2020 11:10:56 PM EDT [facility] Surgeries/Procedures Procedure Description Date Indications Data Source(s) ECG ROUTINE ECG W/LEAST 12 LDS W/I&R ECG 12-LEAD STAT 11/2019 3:04 AM EDT 05/26/2020 07:04:42 AM EDT [facility] TROPONIN QUANTITATIVE POCT TROPONIN Routine 05/26/2020 2:31 AM EDT 05/26/2020 06:31:00 AM EDT [facility] CT ANGIOGRAPHY CHEST W/CONTRAST/NONCONTRAST CT ANGIOGRAM CHEST STAT 05/26/2020 12:59 AM EDT 05/26/2020 04:59:51 AM EDT [facility] POCT CLINITEK URINE HCG POCT CLINITEK URINE HCG Routine 05/25/2020 9:41 PM EDT 05/26/2020 01:41:00 AM EDT [facility] POCT CLINITEK URINE DIPSTICK POCT CLINITEK URINE DIPSTICK Routi ne 05/25/2020 9:38 PM EDT 05/26/2020 01:38:00 AM EDT [facility] XR CHEST PA AND LATERAL XR CHEST PA AND LATERAL STAT 0 9:32 PM EDT 05/26/2020 01:32:36 AM EDT [facility] TROPONIN QUANTITATIVE POCT TROPONIN Routine 05/25/2020 9:26 PM EDT 05/26/2020 01:26:00 AM EDT [facility] BLOOD COUNT COMPLETE AUTO&AUTO DIFRNTL WBC COUNT CBC AND DIFFER ENTIAL STAT 05/25/2020 9:18 PM EDT 05/26/2020 01:18:00 AM EDT [facility] COMPREHENSIVE METABOLIC PANEL COMPREHENSIVE METABOLIC PANEL STA T 05/25/2020 9:18 PM EDT 05/26/2020 01:18:00 AM EDT [facility] Results ID Date Data Source [id number] 12/18/2020 11:30:00 AM EST [facility] Name Value Range Interpretation Code Description Data Julia rce(s) Supporting Document(s) SARS coronavirus 2 RNA Not Detected [facility] This lab was ordered by [facility] and reported by [facility]. ID Date Data Source [id number] 10/07/2020 12:00:00 AM EST [facility] Name Value Range Interpretation Code Description Data Julia rce(s) Supporting Document(s) 2019-nCoV RNA XXX JUSTIN+probe-Imp [facility] This lab was ordered by [facility] and reported by [facility]. ID Date Data Source [id number] 08/01/2020 11:38:00 PM EDT [facility] COVID-19 Specimen Source NASOPHARYNGEAL Is Patient admitted or to be admitted? NFirst test? NOEmployed in healthcare? YESSymptomatic per CDC? NOHospitalized? NOICU? NOResident in congregated care? ex senior living, ARC NO? NO Name Value Range Interpretation Code Description Data Julia rce(s) Supporting Document(s) SARS-CoV-2 RNA Negative Normal (applies to non-numeric r esults) [facility] 2019-novel Coronavirus (2019-nCoV) not d etected by the qRT-PCR assay. Consider testing for other respiratory viruses or re-collecting for 2019-nCoV testing. Note: Optimum timing for peak viral levels during infections caused by 2019- nCoV have not been determined. Collection of multiple specimens from the same patient may be necessary to detect the virus. Limitations Positive results are indicative of active infection with SARS-CoV-2 but do not rule out bacterial infection or co-infection with other viruses. The agent detected may not be the definite cause of disease. In addition, detection of viral RNA may not indicate the presence of infectious virus or that SARS-CoV-2 is the causative agent for clinical symptoms. Negative results do not preclude SARS-CoV-2 infection and should not be used as the sole basis for patient management decisions. Negative results must be combined with clinical observations, patient history, and epidemiological information. False negative results may also occur if amplification inhibitors are present in the specimen or if inadequate numbers of organisms are present in the specimen. Optimum specimen types and timing for peak viral levels during infections caused by SARS-CoV-2 have not been fully determined. Collection of multiple specimens (types and time points) from the same patient may be necessary to detect the virus. The test was validated for use with upper respiratory specimens obtained via nasopharyngeal or oropharyngeal swabs in VTM, UTM, M4, M5, M6, saline, and MTM media. The performance of this test has not been established for other specimens. Specimens collected using other FDA recommended Specimen Collection Materials listed in the FDA COVID-19 [employer] communication (February 19, 2020) are processed with the caveat that they were not all validated for use with this test and the result must be interpreted in this context. Furthermore, a false negative results may occur if a specimen is improperly collected, transported or handled. If the virus mutates in the RT- PCR target region, SARS-CoV-2 may not be detected or may be detected less predictably. Inhibitors or other types of interference may produce a false negative result. An interference study evaluating the effect of common cold medications was not performed. This test is not FDA-cleared but its performance characteristics were established by our CLIA-certified, CAP-accredited, high complexity laboratory in accordance with CLIA regulations, [employer] (CAP) guidelines (Feb 12, 2020), and FDA guidance (Jan 24, 2020). This test is only for use under the Food and Drug Administration's Emergency Use Authorization. THIS IS A STATE REPORTABLE COMMUNICABLE DISEASE. Performing Lab Normal (applies to non-numeric r esults) [facility] COVID-19 Specimen Source: PRINTER APPRENTICE First test ?: N Employed in healthcare?: Y Symptomatic per CDC?: N Hospitalized?: N ICU?: N Resident in congregated care? ex senior living, ARC: N ?: N Please indicate the Triage TierN Test performed or referred by The [address] [address] ID Date Data Source [id number] 08/01/2020 11:08:00 PM EDT [facility] COVID-19 Specimen Source NASOPHARYNGEAL Is Patient admitted or to be admitted? NFirst test? NOEmployed in healthcare? YESSymptomatic per CDC? NOHospitalized? NOICU? NOResident in congregated care? ex senior living, ARC NO? NO Name Value Range Interpretation Code Description Data Julia rce(s) Supporting Document(s) SARS-CoV-2 RNA Negative Normal (applies to non-numeric r esults) [facility] 2019-novel Coronavirus (2019-nCoV) not d etected by the qRT-PCR assay. Consider testing for other respiratory viruses or re-collecting for 2019-nCoV testing. Note: Optimum timing for peak viral levels during infections caused by 2019- nCoV have not been determined. Collection of multiple specimens from the same patient may be necessary to detect the virus. Limitations Positive results are indicative of active infection with SARS-CoV-2 but do not rule out bacterial infection or co-infection with other viruses. The agent detected may not be the definite cause of disease. In addition, detection of viral RNA may not indicate the presence of infectious virus or that SARS-CoV-2 is the causative agent for clinical symptoms. Negative results do not preclude SARS-CoV-2 infection and should not be used as the sole basis for patient management decisions. Negative results must be combined with clinical observations, patient history, and epidemiological information. False negative results may also occur if amplification inhibitors are present in the specimen or if inadequate numbers of organisms are present in the specimen. Optimum specimen types and timing for peak viral levels during infections caused by SARS-CoV-2 have not been fully determined. Collection of multiple specimens (types and time points) from the same patient may be necessary to detect the virus. The test was validated for use with upper respiratory specimens obtained via nasopharyngeal or oropharyngeal swabs in VTM, UTM, M4, M5, M6, saline, and MTM media. The performance of this test has not been established for other specimens. Specimens collected using other FDA recommended Specimen Collection Materials listed in the FDA COVID-19 [employer] communication (February 19, 2020) are processed with the caveat that they were not all validated for use with this test and the result must be interpreted in this context. Furthermore, a false negative results may occur if a specimen is improperly collected, transported or handled. If the virus mutates in the RT- PCR target region, SARS-CoV-2 may not be detected or may be detected less predictably. Inhibitors or other types of interference may produce a false negative result. An interference study evaluating the effect of common cold medications was not performed. This test is not FDA-cleared but its performance characteristics were established by our CLIA-certified, CAP-accredited, high complexity laboratory in accordance with CLIA regulations, [employer] (CAP) guidelines (Feb 12, 2020), and FDA guidance (Jan 24, 2020). This test is only for use under the Food and Drug Administration's Emergency Use Authorization. THIS IS A STATE REPORTABLE COMMUNICABLE DISEASE. Performing Lab Normal (applies to non-numeric r esults) [facility] COVID-19 Specimen Source: PRINTER APPRENTICE First test ?: N Employed in healthcare?: Y Symptomatic per CDC?: N Hospitalized?: N ICU?: N Resident in congregated care? ex senior living, ARC: N ?: N Please indicate the Triage TierN Test performed or referred by The [address] [address] ID Date Data Source [id number] 05/26/2020 08:16:37 AM EDT [facility] Name Value Range Interpretation Code Description Data Julia rce(s) Supporting Document(s) EKG [facility] [id number] [file] [id number]/child therapist/cT [file] [id number]== ID Date Data Source [id number] 05/26/2020 03:05:33 AM EDT [facility] NT INFORMATIONPatient MRN Name Date of Age Gend*PT [id number] Santos Hodge 1995 24 years F EDPT Location Admission Date/Time Visit ID Attending [id number] 05/25/202309 --- Andrew Mustafa DO([id number]) EPI ID CSN Admitting Provider [id number] ---Progress Note:ECG 12 leadDate/Time: 05/25/2020 11:31 PMPerformed by: Andrew Mustafa, DOAuthorized by: GET Ramirez interpreted by ED Physician in the absence of a safety teacher: yesPrevious ECG: Previous ECG: UnavailableInterpretation: Interpretation: normalRate: ECG rate: 82 ECG rate assessment: normalRhythm: Rhythm: sinus rhythmST segments: ST segments: NormalBlaise Silva DO05/26/20 0305 Name Value Range Interpretation Code Description Data Julia rce(s) Supporting Document(s) ID Date Data Source [id number] 05/26/2020 03:04:23 AM EDT [facility] NT INFORMATIONPatient MRN Name Date of Age Gend*PT [id number] Santos Hodge 1995 24 years F EDPT Location Admission Date/Time Visit ID Attending [id number] 05/25/202309 --- Andrew Mustafa DO([id number]) EPI ID CSN Admitting Provider [id number] ---Provider in Triage NotesED Provider in Triage NotePatient Name: Santos Adams and Time of Assessment: 05/25/20, 8:50 PMChief ComplaintPatient presents with Chest Pain left side chest pain radiating to left arm on and off, numbness in arms juststarted, SOB, nausea, vomiting. cardiac family historyBrief HPI: 24 years female, intermittent L chest painNumbness in the L arm starting within the last hourOn Cipro and Flagyl for divertic currently, recently diagnosed with herpes andon valtrexPhysical exam:VSSAmbulatoryNontoxPreliminary Plan:Labs, EKG, CXRThis note was electronically signed by KATHY Ramirez, 05/25/20, 8:50 PM.ED CourseKATHY Ramirez05/25/20romeo Mustafa DO05/25/20ttestation signed by Andrew Mustafa DO at 05/25/2020 11:21 PM:ED MD Attestations:Attestation Type: Mid-Level: SUPERVISED APC: Patient initially seen, evaluatedby midlevel in triage, and testing ordered prior to physician evaluation. Basedsolely on information provided, care seems appropriate.Andrew Mustafa DO 11:20 PMHistory of Present IllnessChief ComplaintPatient presents with Chest Pain left side chest pain radiating to left arm on and off, numbness in arms juststarted, SOB, nausea, vomiting. cardiac family tobdznb80 years old Female presents to the ED c/o intermittent mild to moderate,nonradiating CP throughout the day beginning at 4pm. Pt also reports mild SOB.Pt reports that the CP was unchanged on exertion. Pt was on Flagil and Cipro fordiverticulitis recently and is just finishing those abx. Pt denies any pain ondeep inhalation. Denying any dyspnea on exertion. No treatments attemptedprior to arrival. Nothing improves symptoms, nothing worsens. Pt denies fever,chills, cough or cold symptoms. No numbness weakness. No bowel or bladderissues. Patient does admit to smoking, and is on the NuvaRing. There is aremote family cardiac history as a great grandfather had an apparent cardiacarrest at age 34 per family story mother and father are alive with nosignificant cardiac history.PMHx: diverticulitis.PCP ORDERING PROVIDER REQUESTEDHistory provided by: PatientLanguage card sorter used: NoHistoryHistory reviewed. No pertinent past medical history.History reviewed. No pertinent surgical history.History reviewed. No pertinent family history.Social HistoryTobacco Use Smoking status: Current Every Day Smoker Packs/day: 2.00 Types: Cigarettes Smokeless tobacco: Never UsedSubstance Use Topics Alcohol use: Not on file Drug use: Not on fileROSReview of SystemsConstitutional: Negative for chills and fever.HENT: Negative for congestion, rhinorrhea, tinnitus and trouble swallowing.Eyes: Negative for photophobia and pain.Respiratory: Positive for shortness of breath. Negative for apnea and stridor.Cardiovascular: Positive for chest pain. Negative for palpitations.Gastrointestinal: Negative for abdominal pain, blood in stool, diarrhea, nauseaand vomiting.Endocrine: Negative for polydipsia and polyphagia.Genitourinary: Negative for difficulty urinating, dysuria, flank pain andurgency.Musculoskeletal: Negative for back pain, joint sw elling, neck pain and neckstiffness.Skin: Negative for color change and rash.Neurological: Negative for dizziness, syncope, weakness and numbness.Hematological: Negative for adenopathy. Does not bruise/bleed easily.Psychiatric/Behavioral: Negative for confusion and suicidal ideas.Physical ExamBP 129/59 (BP Location: Left upper arm, Patient Position: Lying) | Pulse 62 |Temp 99.3 F (Tympanic) | Resp 16 | Ht 59" | Wt 83.5 kg | SpO2 97% | BMI37.16 kg/m Physical ExamConstitutional: She is oriented to person, place, and time. She appearswell-developed.HENT:Head: Normocephalic and atraumatic.Right Ear: Tympanic membrane normal.Left Ear: Tympanic membrane normal.Mouth/Throat: Uvula is midline and oropharynx is clear and moist. Nooropharyngeal exudate.Eyes: Pupils are equal, round, and reactive to light. Conjunctivae and EOM arenormal. No scleral icterus.Neck: Trachea normal, normal range of motion and full passive range of motionwithout pain. Neck supple. No neck rigidity. No tracheal d eviation and normalrange of motion present. No thyroid mass and no thyromegaly present.Cardiovascular: Normal rate, regular rhythm, S1 normal, S2 normal, normal heartsounds, intact distal pulses and normal pulses.No murmur heard.Pulmonary/Chest: Effort normal and breath sounds normal. No stridor. Norespiratory distress. She has no wheezes. She has no rales.Abdominal: Soft. Normal appearance and bowel sounds are normal. She exhibits noascites and no mass. There is no hepatosplenomegaly. There is no tenderness.There is no rigidity and no guarding.ObeseMusculoskeletal: Normal range of motion. She exhib its no edema.GOODE. Range Examiner equal bilatLymphadenopathy: She has no cervical adenopathy. She has no axillary adenopathy.Neurological: She is alert and oriented to person, place, and time. She hasnormal strength and normal reflexes. She displays normal reflexes. No cranialnerve deficit or sensory deficit.Reflex Scores: Patellar reflexes are 2+ on the right side and 2+ on the left side.CN II-XII grossly intact. No focal deficitSkin: Skin is warm, dry and intact. No rash noted. No cyanosis.Psychiatric: She has a normal mood and affect. Her speech is normal and behavioris normal.Nursing note and vitals reviewed.ED CourseProceduresMDMNumber of Diagnoses or Management OptionsChest pain, unspecified type:Amount and/or Complexity of Data ReviewedClinical lab tests: ordered and reviewedTests in the radiology section of CPT : reviewed and orderedTests in the medicine section of CPT : ordered and reviewedDecide to obtain previous medical records or to obtain history from someoneother than the patient: yesReview and summarize past medical records: yesIndependent visualization of images, tracings, or specimens: yesRisk of Complications, Morbidity, and/or MortalityPresenting problems: highDiagnostic procedures: highManagement options: highPatient ProgressPatient progress: stable 0300On recheck, the patient is awake, alert, oriented x3 neurologically intact. Shestates that her chest pain is totally resolved and she is denying any shortnessof breath. She is been able to ambulate about the department without anydifficulty. She denies any dizziness or weakness. Results were discussed atlength which included the negative CT angiogram of the chest as well as the 2negative troponins, as well as a normal EKG. Diagnosis and treatment plan werediscussed at length with the patient and family. They understand and agree withdischarge plan.This was electronically signed by Abi Ward acting as scribe forand in the presence of Andrew Mustafa DO, 05/26/20 3:02 AM.ED MD AttestationAttestation of Scribe Documentation: I personally performed the servicesdescribed in the documentation, reviewed the documentation recorded by thescribe in my presence and it accurately and completely records my words andactions.Andrew Mustafa, 3:02 David Mustafa, DO05/26/20 0304 Name Value Range Interpretation Code Description Data Julia rce(s) Supporting Document(s) ID Date Data Source [id number] 05/26/2020 02:43:28 AM EDT [facility] Name Value Range Interpretation Code Description Data Julia rce(s) Supporting Document(s) POC CTNI <0.01 ng/mL (0.01-0.07) L [facility] Less than 0.08: Myocardial injury unlike lyGreater than or equal to 0.08: Highlysuggestive of myocardial injuryCorrelation with rise and/or fall ofserial troponins, clinical symptoms,and ECG changes is necessary.PERFORMED BY [facility] CL[facility]ICAL STAFF ID Date Data Source [id number] 05/26/2020 01:08:54 AM EDT [address] [address]Pnmzcvm Name: Santos HollinsOB: 1995Sex: FOrdering Provider: ANDREW Fabian Prov: ANDREW Garrett Provider: Procedure Performed: CT ANGIOGRAM CHESTExam Date: 05/26/2020 00:51MRN: [id number] Number: [id number] Class: INFORMATION: Exam: CT Angiography Chest With Contrast Exam date and time: 05/26/2020 12:51 AM Age: 24 years old Clinical indication: Other: Pe suspected, low pretest prob TECHNIQUE: Imaging protocol: Computed tomographic angiography of the chest with intravenous contrast. 3D rendering: MIP and/or 3D reconstructed images were created by the technologist. Radiation optimization: All CT scans at this facility use at least one of these dose optimization techniques: automated exposure control; mA and/or kV adjustment per patient size (includes targeted exams where dose is matched to clinical indication); or iterative reconstruction. Contrast material: ISOVUE 370; Contrast volume: 70 ml; Contrast route: INTRAVENOUS (IV); COMPARISON: CR XR CHEST PA AND LATERAL 05/25/2020 8:51 PM FINDINGS: Pulmonary arteries: No pulmonary emboli. Aorta: Unremarkable. No aortic aneurysm. No aortic dissection. Lungs: Bilateral dependent atelectasis. No consolidation. No masses. Pleural space: Unremarkable. No pneumothorax. No pleural effusion. Heart: Unremarkable. No cardiomegaly. No pericardial effusion. Lymph nodes: Unremarkable. No enlarged lymph nodes. Bones/joints: No acute fracture. Soft tissues: Unremarkable. IMPRESSION: No pulmonary emoboli. Report electronically signed by: ILYA COLEMAN MD on 05/26/2020 01:08:54 Name Value Range Interpretation Code Description Data Julia rce(s) Supporting Document(s) ID Date Data Source [id number] 05/25/2020 11:21:02 PM EDT [facility] NT INFORMATIONPatient MRN Name Date of Age Gend*PT [id number] Santos Hodge 1995 24 years F EDPT Location Admission Date/Time Visit ID Attending [id number] 05/25/200 --- Andrew Mustafa DO([id number]) EPI ID CSN Admitting Provider [id number] ---Attestation signed by Andrew Mustafa DO at 05/25/2020 11:21 SERGIO SULLIVAN Attestations:Attestation Type: Mid-Level: SUPERVISED APC: Patient initially seen, evaluatedby midlevel in triage, and testing ordered prior to physician evaluation.Based solely on information provided, care seems appropriate.Andrew Mustafa DO 11:20 PM --ED Provider in Triage NotePatient Name: Santos Adams and Time of Assessment: 05/25/20, 8:50 PMChief ComplaintPatient presents with Chest Pain left side chest pain radiating to left arm on and off, numbness in arms juststarted, SOB, nausea, vomiting. cardiac family historyBrief HPI: 24 years female, intermittent L chest painNumbness in the L arm starting within the last hourOn Cipro and Flagyl for divertic currently, recently diagnosed with herpes andon valtrexPhysical exam:VSSAmbulatoryNontoxPreliminary Plan:Labs, EKG, CXRThis note was electronically signed by KATHY Ramirez, 05/25/20, 8:50 PM.ED CourseKATHY Ramirez05/25/20ritheo Mustafa, 05/25/202320 Name Value Range Interpretation Code Description Data Julia rce(s) Supporting Document(s) ID Date Data Source [id number] 05/25/2020 09:47:23 PM EDT [facility] Name Value Range Interpretation Code Description Data Julia rce(s) Supporting Document(s) POC URINE HCG (NEG) [facility] PERFORMED BY [facility] ID Date Data Source [id number] 05/25/2020 09:38:32 PM EDT [address] [address]Ombccql Name: SANTOS KEBEDEACEDOB: 1995Sex: FOrdering Provider: MERCEDES Johansen Prov: MERCEDES VACARefgisell Provider: Procedure Performed: XR CHEST PA AND LATERALExam Date: 05/25/2020 21:32MRN: [id number] Number: [id number] Class: EmergencyAccount #: [id number] for Exam: chest painTechnique: PA and lateral views obtained.Comparison: NoneFindings: The cardiomediastinal silhouette is within normal limits. No effusions are seen. Lungs are clear.IMPRESSION: No acute disease.Report electronically signed by: CASE HAMMOND On 05/25/2020 9:38 PMWorkstation ID: [id number] Name Value Range Interpretation Code Description Data Julia rce(s) Supporting Document(s) ID Date Data Source [id number] 05/25/2020 09:40:51 PM EDT [facility] Name Value Range Interpretation Code Description Data Julia rce(s) Supporting Document(s) POC URINE COLOR [facility] POC URINE APPEARANCE [facility] POC SPEC GRAV URINE 1.010 (1.003-1.030) [facility] POC PH URINE 7.0 (5.0-7.5) [facility] POC LEUK ESTERASE UR (NEG) [facility] POC NITRITE URINE (NEG) [facility] POC PROTEIN URINE (NEG) [facility] POC GLUCOSE URINE (NEG) [facility] POC KETONE URINE (NEG) [facility] POC UROBILINOGEN UR 0.2 EU/dL (0.2-1.0) [facility] POC BILIRUBIN UR (NEG) [facility] POC BLOOD HGB URINE (NEG) [facility] PER[facility] BY [facility] ID Date Data Source [id number] 05/25/2020 09:37:30 PM EDT [facility] Name Value Range Interpretation Code Description Data Julia rce(s) Supporting Document(s) POC CTNI <0.01 ng/mL (0.01-0.07) L [facility] Less than 0.08: Myocardial injury unlike lyGreater than or equal to 0.08: Highlysuggestive of myocardial injuryCorrelation with rise and/or fall ofserial troponins, clinical symptoms,and ECG changes is necessary.PERFORMED BY [facility] ID Date Data Source [id number] 05/25/2020 09:47:43 PM EDT [facility] Name Value Range Interpretation Code Description Data Julia rce(s) Supporting Document(s) SODIUM 139 mmol/L (136-145) [facility] POTASSIUM 3.9 mmol/L (3.6-5.2) [facility] CHLORIDE 107 mmol/L (100-108) [facility] CO2 25 mmol/L (22-31) [facility] ANION GAP 7 mmol/L (7-16) [facility] UREA NITROGEN 11 mg/dL (7-24) [facility] CREATININE 0.90 mg/dL (0.60-1.00) [facility] BUN/CREAT RATIO 12.2 RATIO (10.0-20.0) [facility] GLUCOSE 122 mg/dL (70-99) H [facility] CALCIUM 9.0 mg/dL (8.4-10.2) [facility] TOTAL PROTEIN 7.8 g/dL (6.4-8.2) [facility] ALBUMIN 3.7 g/dL (3.5-4.6) [facility] GLOBULIN 4.1 g/dL (2.7-4.3) [facility] ALB/GLOB RATIO 0.9 RATIO [facility] ALKALINE PHOSPHATASE 66 U/L (45-117) [facility] BILIRUBIN,TOTAL 0.4 mg/dL (0.0-1.0) [facility] PLEASE NOTE:Total bilirubin results may be falselyelevated in patients taking Eltrombopag. AST (SGOT) 23 U/L (11-39) [facility] ALT (SGPT) 39 U/L (12-78) [facility] GFR >60 ml/min/1.73m2 (>59) [facility] GFR ( AMER) >60 ml/min/1.73m2 (>59) [facility] GFR INTERPRETATION [facility] --NORMAL KIDNEY FUNCTION OR MILD DISEASE - GFR >OR= 60CHRONIC KIDNEY DISEASE - GFR 15 - 59RENAL FAILURE - GFR <15 Est. GFR calculation based on the MDRDstudy equation, which assumes a steadystate for creatinine. Est. GFR should notbe used for medication dosing. ID Date Data Source [id number] 05/25/2020 09:35:15 PM EDT [facility] Name Value Range Interpretation Code Description Data Julia rce(s) Supporting Document(s) WBC 9.3 10*3/uL (4.1-11.0) [facility] RBC 4.77 10*6/uL (4.00-5.40) [facility] HGB 14.7 g/dL (12.0-16.0) [facility] HCT 42.8 % (36.0-47.0) [facility] MCV 89.7 fL (80.0-95.0) [facility] MCH 30.7 pg (27.0-32.0) [facility] MCHC 34.3 g/dL (32.0-36.0) [facility] RDW 12.9 % (10.5-14.5) [facility] PLT 216 10*3/uL (150-450) [facility] MPV 9.5 fL (7.1-10.7) [facility] NEUT % 69.0 % (35.0-75.0) [facility] LYMPH % 23.1 % (16.0-52.0) [facility] MONO % 6.5 % (0.0-8.0) [facility] EOS % 0.7 % (0.0-5.0) [facility] BASO % 0.7 % (0.0-4.0) [facility] NEUT # 6.4 10*3/uL (1.8-7.7) [facility] LYMPH # 2.1 10*3/uL (1.2-4.8) [facility] MONO # 0.6 10*3/uL (0.0-0.8) [facility] Eosinophils [#/volume] in Blood by Automated count 0.1 10*3/uL (0.0-0 .5) [facility] BASO # 0.1 10*3/uL (0.0-0.2) [facility] Procedure Social History Code Duration Value Status Description Data Source(s ) Smoking 09/16/2020 12:00:00 AM EDT Former Smoker completed Former Smoker eCW1 ([facility]) Cigarettes smoked current (pack per day) - Reported 06/30/20 20 12:00:00 AM EDT UNK completed [facility] Smoking 05/25/2020 12:00:00 AM EDT Current every day smoker co mpleted Current every day smoker [facility] Vital Signs ID Date Data Source UNK Name Value Range Interpretation Code Description Data Source(s) Body surface area Derived from formula 1.80 m2 1.80 m2 [facility] ([facility], ) Body weight 85.277 kg 85.277 kg [facility] ([facility]) [place] body weight 100 [lb_av] 100 [lb_av] MEDEN T ([facility]) Body mass index (BMI) [Ratio] 38.0 kg/m2 38.0 k g/m2 [facility] ([facility]) Body weight 188.00 [lb_av] 188.00 [lb_av] [facility] Body height 59 [in_i] 59 [in_i] [facility] ([facility]) 4'11" Diastolic blood pressure 62 mm[Hg] 62 mm[Hg] [facility] ([facility]) Systolic blood pressure 116 mm[Hg] 116 mm[Hg] [facility] ([facility]) Oxygen saturation in Arterial blood by Pulse oximetry 97 % 97 % [facility] Respiratory rate 16 /min 16 /min [facility] Heart rate 62 /min 62 /min [facility] Diastolic blood pressure 59 mm[Hg] 59 mm[Hg] [facility] Systolic blood pressure 129 mm[Hg] 129 mm[Hg] [facility] Body mass index (BMI) [Ratio] 37.16 kg/m2 37.16 kg/m2 [facility] Body weight 83.462 kg 83.462 kg [facility] Body height 149.9 cm 149.9 cm [facility] Body temperature 37.39 Liat 37.39 Liat [facility]
[2020-12-23] MEDS ORDERED: NS 1,000 ML IV ONE (07:00)
[2020-12-23] MEDS ORDERED: propofoL 200 MG/20 ML VIAL As Ordered ONE (07:19)
[2020-12-23] MEDS ORDERED: LIDOCAINE 2% 100MG/5ML SDV (FOR ANES.) As Ordered ONE (07:19)
--- NOTE | 2020-12-23 10:11 | ROOR ---
Patient Name: Trang Winslow Procedure Date: 12/23/2020 9:33 AM Date of : 1995 Age: 25 Room: [facility] Gender: Female Note Status: Finalized Procedure: Colonoscopy Indications: Abnormal CT of the GI tract, Follow-up of diverticulitis Providers: Uriel Marcial MD Referring MD: Linda EDWARDS MD Requesting Provider: Medicines: Monitored Anesthesia Care Complications: No immediate complications. Procedure: Pre-Anesthesia Assessment: - Prior to the procedure, a History and Physical was performed, and patient medications and allergies were reviewed. The patient is competent. The risks and benefits of the procedure and the sedation options and risks were discussed with the patient. All questions were answered and informed consent was obtained. Patient identification and proposed procedure were verified by the physician, the nurse and the anesthesiologist in the procedure room. Mental Status Examination: alert and oriented. Airway Examination: normal oropharyngeal airway and neck mobility. Respiratory Examination: clear to auscultation. CV Examination: normal. Prophylactic Antibiotics: The patient does not require prophylactic antibiotics. Prior Anticoagulants: The patient has taken no previous anticoagulant or antiplatelet agents. ASA Grade Assessment: II - A patient with mild systemic disease. After reviewing the risks and benefits, the patient was deemed in satisfactory condition to undergo the procedure. The anesthesia plan was to use monitored anesthesia care (MAC). Immediately prior to administration of medications, the patient was re-assessed for adequacy to receive sedatives. The heart rate, respiratory rate, oxygen saturations, blood pressure, adequacy of pulmonary ventilation, and response to care were monitored throughout the procedure. The physical status of the patient was re-assessed after the procedure. The Colonoscope was introduced through the anus and advanced to the terminal ileum, with identification of the appendiceal orifice and IC valve. The colonoscopy was performed without difficulty. The patient tolerated the procedure well. The quality of the bowel preparation was good. The terminal ileum, ileocecal valve, appendiceal orifice, and rectum were photographed. Scope insertion time was 2 minutes. Scope withdrawal time was 9 minutes. The total duration of the procedure was 12 minutes. Findings: The perianal and digital rectal examinations were normal. The terminal ileum appeared normal. A 4 mm polyp was found in the recto-sigmoid colon. The polyp was sessile. The polyp was removed with a jumbo cold forceps. Resection and retrieval were complete. Verification of patient identification for the specimen was done by the physician and nurse using the patient's name, date and medical record number. Estimated blood loss was minimal. Multiple small and large-mouthed diverticula were found from sigmoid to ascending colon. There was no evidence of diverticular bleeding. Non-bleeding external and internal hemorrhoids were found during retroflexion. The hemorrhoids were medium-sized. Impression: - The examined portion of the ileum was normal. - One 4 mm polyp at the recto-sigmoid colon, removed with a jumbo cold forceps. Resected and retrieved. - Severe diverticulosis from sigmoid to ascending colon. There was no evidence of diverticular bleeding. - Non-bleeding external and internal hemorrhoids. Recommendation: - Patient has a contact number available for emergencies. The signs and symptoms of potential delayed complications were discussed with the patient. Return to normal activities tomorrow. Written discharge instructions were provided to the patient. - High fiber diet. - Continue present medications. - Use fiber, for example Citrucel, Fibercon, Konsyl or Metamucil. - Await pathology results. - Repeat colonoscopy in 5-10 years for surveillance based on pathology results. - Telephone GI clinic for pathology results in 2 weeks. - Return to primary care physician. Procedure Code(s): --- Professional --- 55510, Colonoscopy, flexible; with biopsy, single or multiple Diagnosis Code(s): --- Professional --- K64.8, Other hemorrhoids K63.5, Polyp of colon K57.32, Diverticulitis of large intestine without perforation or abscess without bleeding K57.30, Diverticulosis of large intestine without perforation or abscess without bleeding R93.3, Abnormal findings on diagnostic imaging of other parts of digestive tract CPT copyright 2019 [employer]. All rights reserved. The codes documented in this report are preliminary and upon family dentist review may be revised to meet current compliance requirements. Uriel Marcial MD Uriel Marcial MD 12/23/2020 10:10:36 AM Electronically signed by Uriel Marcial MD Number of Addenda: 0 Note Initiated On: 12/23/2020 9:33 AM Estimated Blood Loss: Estimated blood loss was minimal.
[2020-12-23 10:15] VITALS: BP 131/77
== END 2020-12-23 10:23 | disposition home or self-care (01) ==
LOC: M OPP 06:47
PROVIDERS: ATTEND Internal Medicine Gastroenterology
DX: R93.3 Abnormal findings on diagnostic imaging of other parts of digestive tract (principal); K57.32 Diverticulitis of large intestine without perforation or abscess without bleeding; K63.5 Polyp of colon; K57.30 Diverticulosis of large intestine without perforation or abscess without bleeding; K64.8 Other hemorrhoids; Z79.899 Other long term (current) drug therapy; Z82.49 Family history of ischemic heart disease and other diseases of the circulatory system; Z80.3 Family history of malignant neoplasm of breast; Z80.8 Family history of malignant neoplasm of other organs or systems; Z83.79 Family history of other diseases of the digestive system

== ENCOUNTER → 2021-01-04 | Outpatient (CLI) | payer SELFPAY ==
[~2021-01-04] MED LIST changes: -UNRESOLVED CLARIFICATION ENTRY XX SCH
== END ==
LOC: M LABSMTC 13:38
PROVIDERS: ATTEND Pediatrics
DX: Z20.822 Contact with and (suspected) exposure to COVID-19 (principal)

== ENCOUNTER → 2021-02-19 | Outpatient (REF) | payer OTHER | LOC: M LAB REF 17:12 | PROVIDERS: ATTEND Physician Assistant | DX: Z20.822 Contact with and (suspected) exposure to COVID-19 (principal) ==

== ENCOUNTER 2021-07-26 19:30 | Emergency (ER) | payer OTHER ==
[~2021-07-26] VITALS: Ht 149.9 cm; Wt 78.7 kg
[2021-07-26 19:31] VITALS: BP 124/88
[2021-07-26] MEDS ORDERED: FLUO10CA18 PO (19:44)
[2021-07-26] MEDS ORDERED: ACET-897 PO (19:44)
[2021-11-07] MEDS ORDERED: PANT20TA6 PO (13:49)
[2021-11-07] MEDS ORDERED: PROAAER10 INH (13:49)
[2021-11-07] MEDS ORDERED: VALA1TAB5 PO (13:49)
[2021-11-07] MEDS ORDERED: ACET1TAB55 PO (13:50)
[2021-11-07] MEDS ORDERED: IBUP200C27 PO (13:50)
[2021-11-07] MEDS ORDERED: MIRE1IUD IU (13:51)
[2021-11-14] MEDS ORDERED: FLUO10CA18 PO (07:25)
== END 2021-07-26 22:07 | disposition home or self-care (01) ==
LOC: M ED 19:30
DX: S09.90XA Unspecified injury of head, initial encounter (principal); W22.09XA Striking against other stationary object, initial encounter; Y92.9 Unspecified place or not applicable; Y93.9 Activity, unspecified; Y99.9 Unspecified external cause status; J34.1 Cyst and mucocele of nose and nasal sinus; K57.30 Diverticulosis of large intestine without perforation or abscess without bleeding; F41.9 Anxiety disorder, unspecified; Z79.899 Other long term (current) drug therapy

== ENCOUNTER → 2021-10-23 | Outpatient (REF) | payer OTHER ==
[~2021-10-23] MED LIST changes: +ACET-897 PO; +FLUO10CA16 PO
== END ==
LOC: M LAB REF 18:15
PROVIDERS: ATTEND Physician Assistant Medical
DX: R50.9 Fever, unspecified (principal)

== ENCOUNTER → 2021-11-10 | Outpatient (CLI) | payer OTHER ==
[~2021-11-10] MED LIST changes: +ACET1TAB55 PO; +IBUP200C27 PO; +PANT20TA6 PO; +PROAAER10 INH; +VALA1TAB5 PO
== END ==
LOC: M LABSMTC 09:44
PROVIDERS: ATTEND Anesthesiology
DX: Z01.812 Encounter for preprocedural laboratory examination (principal); Z20.822 Contact with and (suspected) exposure to COVID-19

== ENCOUNTER 2021-11-14 06:51 | Day surgery (SDC) | payer OTHER ==
[~2021-11-14] VITALS: Ht 149.9 cm; Wt 75.5 kg
[~2021-11-14 06:51] MED LIST changes: +LR 1,000 ML IV ONE
[2021-11-14] MEDS ORDERED: FLUO10CA16 PO (07:25)
[2021-11-14] MEDS ORDERED: LIDOCAINE W/EPINEPHRINE 1% 20ML VIAL As Ordered ONE (08:30)
[2021-11-14] MEDS ORDERED: METHYLENE BLUE 0.5% (5MG/ML) 10 ML AMP (PROVAYBLUE) As Ordered ONE (08:30)
[2021-11-14] MEDS ORDERED: COCAINE 4% 4ML NASAL SOLUTION BTL As Ordered ONE (08:31)
[2021-11-14] MEDS ORDERED: OXYMETAZOLINE 0.05% NASAL SPRAY (AFRIN) As Ordered ONE (08:32)
[2021-11-14] MEDS ORDERED: SUGAMMADEX SODIUM 500 MG/5 ML VIAL (BRIDION) As Ordered ONE (09:13)
[2021-11-14] MEDS ORDERED: MIDAZOLAM INJ 2MG/2ML VIAL (J2250 PER 1MG) As Ordered ONE (09:13)
[2021-11-14] MEDS ORDERED: propofoL 200 MG/20 ML VIAL As Ordered ONE (09:13)
[2021-11-14] MEDS ORDERED: fentaNYL 100 MCG/2 ML INJECTION (J3010) As Ordered ONE (09:13)
[2021-11-14] MEDS ORDERED: LIDOCAINE 2% 100MG/5ML SDV (FOR ANES.) As Ordered ONE (09:13)
[2021-11-14] MEDS ORDERED: ONDANSETRON 4MG/2ML VIAL As Ordered ONE (09:13)
[2021-11-14] MEDS ORDERED: ROCURONIUM BROMIDE 50 MG/5 ML VIAL As Ordered ONE (09:13)
[2021-11-14] MEDS ORDERED: dexameTHASONE 4 MG/ML 1ML VIAL (J1100 PER 1MG) As Ordered ONE (09:13)
[2021-11-14] MEDS ORDERED: ACETAMINOPHEN 1000MG 100ML IV BTL (OFIRMEV) (J0131 PER 10MG) As Ordered ONE (09:18)
--- NOTE | 2021-11-14 10:20 | ROOPDOC ---
[facility] Report Of Operation Report of Operation DATE OF PROCEDURE: 11/14/21 PREPROCEDURE DIAGNOSES: Septal deviation, hypertrophic inferior turbinates. POSTPROCEDURE DIAGNOSES: Same. PROCEDURE PERFORMED: Septoplasty, bilateral submucous resection of inferior turbinates. SURGEON: MD Tre [employer] INTERMEDIARY: MD Luis Eduardo ANESTHESIA: General. ESTIMATED BLOOD LOSS: Approximately 50 mL. COMPLICATIONS: None. REMARKS: . FINDINGS: SPECIMENS REMOVED: None PROCEDURE NOTE: . Patient was seen in the office and was diagnosed with the above condition. A decision was made in consultation with the patient after explanation of risks and benefits to undergo the above-named procedure. The patient was admitted through the same-day surgery program, taken to the operating room where general anesthetic was administered via intravenous injection. Patient was then intubated endotracheally. The nose was decongested with 4 mL of 4% cocaine solution and nasal pledgets. Patient was draped in the usual sterile fashion. The pledgets were removed. The right speculum was injected with 1% lidocaine and epinephrine. Using a [place] blade to have left hemitransfixion incision was created. Using the [place] elevator. The mucosa was elevated and the bowman bperichondrial plane. This was extended posteriorly over the perpendicular plate of the ethmoid and inferiorly over the vomer. We the bony and cartilaginous septums with the [place] elevator and elevated on the opposite side. The deviated portion of the bone and cartilage posteriorly was removed. A strip of cartilage was removed inferiorly, taking care to leave more than a centimeter of tip support. There was a deviated portion of cartilage superiorly and caudally. We made several vertical incisions in this cartilage. We elevated on either side of the maxillary crest and the deviated portion was removed with a 4 mm osteotome. A portion of cartilage was then placed back into the flap. We approximated the anterior hemotransfixion incision with interrupted 4-0 chromic suture. The septum was quilted with interrupted 4-0 plain gut suture. The left inferior turbinate was injected with 1% lidocaine with epinephrine. A vertical incision was made with a [place] blade. We elevated the mucosa off the submucosal plane. We then lateralized this with the [place] elevator. The right inferior turbinate was injected with 1% lidocaine with epinephrine. We elevated the mucosa off the turbinate with the [place] elevator. The 2.9 mm microdebrider blade was used to reduce this along its length. This was then lateralized with a [place] elevator. Magnetic splints were placed on either side of the septum and secured anteriorly with a 3-0 nylon suture. Slim lines were placed against the inferior turbinates and removed in recovery. A mustache dressing was placed under the nose. The patient was then allowed to recover from anesthesia and was taken to the post anesthesia care area in stable condition. There were no complications during this procedure. DESCRIPTION OF PROCEDURE: . Donnie Toledo MD Nov 14, 2021 10:20
[2021-11-14] MEDS ORDERED: oxyCODONE 5MG TAB PO PRN (10:25)
[2021-11-14] MEDS ORDERED: fentaNYL 100 MCG/2 ML INJECTION (J3010) IV PRN (10:25)
[2021-11-14] MEDS ORDERED: ONDANSETRON 4MG/2ML VIAL IV PRN ×2 (10:25→10:30)
[2021-11-14] MEDS ORDERED: LR 1,000 ML IV SCH ×2 (10:25→10:30)
[2021-11-14] MEDS ORDERED: OXYMETAZOLINE 0.05% NASAL SPRAY (AFRIN) PRN (10:30)
[2021-11-14] MEDS ORDERED: MORPHINE 10 MG/ML 1ML VIAL (J2270) IV PRN (10:30)
[2021-11-14] MEDS ORDERED: ANEXSIA, NORCO 7.5MG/325MG TABLET(HYDROCODONE/APAP) PO PRN (10:30)
[2021-11-14 11:00] VITALS: BP 99/58
== END 2021-11-14 11:41 | disposition home or self-care (01) ==
LOC: M SDC 06:51
PROVIDERS: ATTEND Otolaryngology
DX: J34.2 Deviated nasal septum (principal); J34.3 Hypertrophy of nasal turbinates; K21.9 Gastro-esophageal reflux disease without esophagitis; K57.92 Diverticulitis of intestine, part unspecified, without perforation or abscess without bleeding; J45.909 Unspecified asthma, uncomplicated; Z79.899 Other long term (current) drug therapy
CPT/HCPCS: 30140; 30520; 81025; C9046; J0131; J1100; J2250; J2405; J3010; Q9968

== ENCOUNTER → 2022-12-28 | Outpatient (CLI) | payer BC ==
[~2022-12-28] MED LIST changes: -FLUO10CA16 PO; +FLUO10CA18 PO; -LR 1,000 ML IV ONE
[2022-12-28 11:26] LABS: BASO # 0.1 10^3/uL (0.0-0.2); BASO % 0.6 % (0.0-1.0); EOS # 0.1 10^3/uL (0.0-0.5); EOS % 0.9 % (0.0-3.0); HEMATOCRIT 46.1 % (36.0-47.0); HEMOGLOBIN 14.8 g/dl (12.0-15.5); LYMPH # 3.1 10^3/uL (1.5-5.0); LYMPH % 40.1 % (24.0-44.0); MEAN CORPUSCULAR HEMOGLOBIN 29.8 pg (27.0-33.0); MEAN CORPUSCULAR HGB CONC 32.1 g/dl (32.0-36.5); MEAN CORPUSCULAR VOLUME 92.9 fl (80.0-96.0); MONO # 0.5 10^3/uL (0.0-0.8); MONO % 6.7 % (2.0-8.0); NEUTROPHILS % 51.4 % (36.0-66.0); PLATELET COUNT, AUTOMATED 219 10^3/uL (150-450); RED BLOOD COUNT 4.96 10^6/uL (4.00-5.40); WHITE BLOOD COUNT 7.8 10^3/uL (4.0-10.0)
[2022-12-28 11:59] LABS: ALBUMIN 3.8 G/DL (3.2-5.2); ALKALINE PHOSPHATASE 70 U/L (46-116); ALT/SGPT 20 U/L (7.0-40); AST/SGOT 20 U/L (<34); BILIRUBIN,TOTAL 0.8 MG/DL (0.3-1.2); BLOOD UREA NITROGEN 11 MG/DL (9-23); CALCIUM LEVEL 9.4 MG/DL (8.5-10.1); CARBON DIOXIDE LEVEL 28 MMOL/L (20-31); CHLORIDE LEVEL 105 MMOL/L (98-107); CHOLESTEROL LEVEL 171 MG/DL (<200); CHOLESTEROL RISK RATIO 4.54 (<5); CREATININE FOR GFR 0.79 MG/DL (0.55-1.30); GLOMERULAR FILTRATION RATE > 60.0 (>60); GLUCOSE, FASTING 83 MG/DL (60-100); HDL CHOLESTEROL 37.6 MG/DL (>40); NON-HDL-C 133 MG/DL; POTASSIUM SERUM 4.4 MMOL/L (3.5-5.1); SODIUM LEVEL 140 MMOL/L (136-145); TOTAL PROTEIN 7.1 G/DL (5.7-8.2); TRIGLYCERIDES LEVEL 192 MG/DL (<150)
[2022-12-28 12:35] LABS: THYROID STIMULATING HORMONE 1.027 uIU/ML (0.55-4.78)
[2022-12-28 12:39] LABS: FREE T4 1.03 NG/DL (0.89-1.76)
== END ==
LOC: M LAB 10:51
PROVIDERS: ATTEND Student in an Organized Health Care Education/Training Program
DX: E66.9 Obesity, unspecified (principal); R53.83 Other fatigue

== ENCOUNTER → 2024-02-29 | Outpatient (CLI) | payer OTHER ==
[~2024-02-29] MED LIST changes: +DICY-61 PO; -DICY10CA13 PO
[2024-02-29 13:31] LABS: BASO % 0.4 % (0.0-1.0); EOS # 0.1 10^3/uL (0.0-0.5); EOS % 0.7 % (0.0-3.0); HEMATOCRIT 42.4 % (36.0-47.0); HEMOGLOBIN 13.7 g/dl (12.0-15.5); LYMPH # 2.7 10^3/uL (1.5-5.0); LYMPH % 31.8 % (24.0-44.0); MEAN CORPUSCULAR HEMOGLOBIN 30.3 pg (27.0-33.0); MEAN CORPUSCULAR HGB CONC 32.3 g/dl (32.0-36.5); MEAN CORPUSCULAR VOLUME 93.8 fl (80.0-96.0); MONO # 0.6 10^3/uL (0.0-0.8); MONO % 7.4 % (2.0-8.0); NEUTROPHILS # 4.9 10^3/uL (1.5-8.5); NEUTROPHILS % 59.3 % (36.0-66.0); PLATELET COUNT, AUTOMATED 229 10^3/uL (150-450); RED BLOOD COUNT 4.52 10^6/uL (4.00-5.40); WHITE BLOOD COUNT 8.3 10^3/uL (4.0-10.0)
[2024-02-29 14:01] LABS: ALBUMIN 3.4 G/DL (3.2-5.2); ALKALINE PHOSPHATASE 59 U/L (46-116); ALT/SGPT 22 U/L (7.0-40); AST/SGOT 34 U/L (<34); BLOOD UREA NITROGEN 19 MG/DL (9-23); CALCIUM LEVEL 9.6 MG/DL (8.5-10.1); CARBON DIOXIDE LEVEL 26 MMOL/L (20-31); CHLORIDE LEVEL 107 MMOL/L (98-107); CHOLESTEROL LEVEL 128 MG/DL (<200); CHOLESTEROL RISK RATIO 3.83 (<5); CREATININE FOR GFR 0.78 MG/DL (0.55-1.30); FREE T4 1.04 NG/DL (0.89-1.76); GLOMERULAR FILTRATION RATE > 60.0 (>60); GLUCOSE, FASTING 92 MG/DL (60-100); HDL CHOLESTEROL 33.4 MG/DL (>40); LDL CHOLESTEROL 81.2 MG/DL (<100); MAGNESIUM LEVEL 1.8 MG/DL (1.8-2.4); NON-HDL-C 94.6 MG/DL; POTASSIUM SERUM 4.7 MMOL/L (3.5-5.1); SODIUM LEVEL 136 MMOL/L (136-145); TOTAL 25(OH) VITAMIN D 55.6 NG/ML (20.0-100.0); TOTAL PROTEIN 6.8 G/DL (5.7-8.2); TRIGLYCERIDES LEVEL 67 MG/DL (<150); VITAMIN B12 LEVEL 526 PG/ML (211-911)
[2024-02-29 14:16] LABS: HEMOGLOBIN A1c 4.9 % (4.0-6.0)
== END ==
LOC: M LAB 12:29
PROVIDERS: ATTEND Physician Assistant
DX: Z00.00 Encounter for general adult medical examination without abnormal findings (principal)

== ENCOUNTER → 2024-07-16 | Outpatient (CLI) | payer BC ==
[~2024-07-16] MED LIST changes: +FLUO-290 PO; -FLUO10CA18 PO
== END ==
LOC: M SLEEP HO 10:05
PROVIDERS: ATTEND Physician Assistant
DX: R06.83 Snoring (principal); R40.0 Somnolence

== ENCOUNTER → 2024-09-10 | Outpatient (REF) | payer BC ==
[2024-09-12 14:37] LABS: HPV APTIMA Not Detected (Not Detected)
== END ==
LOC: M SFHCWAGY 13:09
PROVIDERS: ATTEND Nurse Practitioner Family
DX: Z12.4 Encounter for screening for malignant neoplasm of cervix (principal)
CPT/HCPCS: 87624; G0123

== ENCOUNTER → 2024-10-13 | Outpatient (CLI) | payer BC | LOC: M RAD 19:03 | PROVIDERS: ATTEND Emergency Medicine | DX: R05.9 Cough, unspecified (principal); R06.02 Shortness of breath ==

== ENCOUNTER → 2024-10-13 | Outpatient (CLI) | payer BC | LOC: M LAB 16:44 | PROVIDERS: ATTEND Emergency Medicine | DX: R05.9 Cough, unspecified (principal) ==

== ENCOUNTER 2024-10-25 03:02 | Emergency (ER) | payer BC ==
[~2024-10-25] VITALS: Ht 152.4 cm; Wt 78.4 kg
[2024-10-25] MEDS: KETOROLAC 30 MG/ML 1ML VIAL IV ONE ×2 (03:52→07:00)
[2024-10-25 03:59] LABS: BASO # 0.1 10^3/uL (0.0-0.2); BASO % 0.6 % (0.0-1.0); EOS # 0.1 10^3/uL (0.0-0.5); EOS % 0.7 % (0.0-3.0); HEMATOCRIT 45.7 % (36.0-47.0); HEMOGLOBIN 15.4 g/dl (12.0-15.5); LYMPH # 3.3 10^3/uL (1.5-5.0); LYMPH % 36.8 % (24.0-44.0); MEAN CORPUSCULAR HGB CONC 33.7 g/dl (32.0-36.5); MEAN CORPUSCULAR VOLUME 92.1 fl (80.0-96.0); MONO # 0.7 10^3/uL (0.0-0.8); MONO % 7.4 % (2.0-8.0); NEUTROPHILS # 4.8 10^3/uL (1.5-8.5); NEUTROPHILS % 54.3 % (36.0-66.0); PLATELET COUNT, AUTOMATED 249 10^3/uL (150-450); RED BLOOD COUNT 4.96 10^6/uL (4.00-5.40); WHITE BLOOD COUNT 8.8 10^3/uL (4.0-10.0)
[2024-10-25] MEDS ORDERED: ISOVUE-370 76% 100ML VIAL As Ordered ONE (04:03)
[2024-10-25 04:22] LABS: LIPASE 27 U/L (12-53)
[2024-10-25 04:24] LABS: ALBUMIN 3.7 G/DL (3.2-5.2); ALKALINE PHOSPHATASE 63 U/L (35-104); ALT/SGPT 21 U/L (7.0-40); AST/SGOT 16 U/L (<34); BILIRUBIN,TOTAL 1.2 MG/DL (0.3-1.2); BLOOD UREA NITROGEN 7 MG/DL (9-23); CALCIUM LEVEL 9.3 MG/DL (8.5-10.1); CARBON DIOXIDE LEVEL 26 MMOL/L (20-31); CHLORIDE LEVEL 105 MMOL/L (98-107); CREATININE FOR GFR 0.87 MG/DL (0.55-1.30); GLOMERULAR FILTRATION RATE > 60.0 (>60); GLUCOSE, FASTING 92 MG/DL (60-100); POTASSIUM SERUM 3.9 MMOL/L (3.5-5.1); SODIUM LEVEL 137 MMOL/L (136-145); TOTAL PROTEIN 7.6 G/DL (5.7-8.2)
[2024-10-25 04:32] LABS: HCG, SERUM QUALITATIVE NEGATIVE (NEGATIVE)
[2024-10-25] MEDS: ONDANSETRON 4MG 2ML VIAL IV ONE (06:52)
[2024-10-25] MEDS: MORPHINE 2 MG/ML 1ML VIAL IV ONE (06:55)
[2024-10-25 07:44] LABS: PROCALCITONIN <0.04 ng/ml
[2024-10-25 09:03] LABS: C REACTIVE PROTEIN QUANTITATIV < 0.40 MG/DL (<1.0)
[2024-10-25] MEDS ORDERED: HOME MED LIST COMPLETE! XX SCH (09:35)
[2024-10-25] MEDS: ACETAMINOPHEN *IV* 1,000 MG in IV 1 EA IV ONE (09:59)
[2024-10-25] MEDS: FAMOTIDINE IV BAG 20 MG in IV 1 EA IV ONE (10:17)
[2024-10-25] MEDS: PIPERACILLIN/TAZOBACTAM SOD 3.375 GM in DEXTROSE 5% (D5W) ADV/MINI-BAG 50 ML IV ONE (10:27)
[2024-10-25] MEDS: LR 1,000 ML IV SCH (10:50)
[2024-10-25] MEDS ORDERED: AMOX875T2 PO (12:12)
[2024-10-25] MEDS ORDERED: ACET-897 PO (12:12)
[2024-10-25 12:20] VITALS: BP 133/86; TEMP 97.7; O2SAT 99
[2024-10-25] MEDS ORDERED: ONDA-282 PO (12:21)
== END 2024-10-25 12:20 | disposition home or self-care (01) ==
LOC: M ED 03:02
DX: R10.9 Unspecified abdominal pain (principal); K57.30 Diverticulosis of large intestine without perforation or abscess without bleeding; K44.9 Diaphragmatic hernia without obstruction or gangrene; K21.9 Gastro-esophageal reflux disease without esophagitis; F39 Unspecified mood [affective] disorder; J45.909 Unspecified asthma, uncomplicated; Z97.5 Presence of (intrauterine) contraceptive device; Z79.1 Long term (current) use of non-steroidal anti-inflammatories (NSAID); Z79.2 Long term (current) use of antibiotics; Z79.899 Other long term (current) drug therapy
CPT/HCPCS: 74177; 80053; 81001; 83690; 84145; 84703; 85025; 86140; 87486; 87581; 87633; 87798; 96365; 96366; 96367; 96375; 96376; 99284; J0131; J1885; J2405; J2543; Q9967; S0028

== ENCOUNTER → 2025-09-14 | Outpatient (CLI) | payer BC ==
[~2025-09-14] MED LIST changes: +AMOX875T2 PO; +ONDA-282 PO
== END ==
LOC: M PLALAB 11:04
PROVIDERS: ATTEND Nurse Practitioner Family
DX: Z13.79 Encounter for other screening for genetic and chromosomal anomalies (principal); Z80.3 Family history of malignant neoplasm of breast; Z84.81 Family history of carrier of genetic disease; N64.89 Other specified disorders of breast

== ENCOUNTER → 2025-09-18 | Outpatient (CLI) | payer BC ==
[~2025-09-18] MED LIST changes: +KETO-204 PO; +METR-265 PO; +OMEP-173 PO; +PANT20TA6
== END ==
LOC: M WHC 10:36
PROVIDERS: ATTEND Nurse Practitioner Family
DX: N64.89 Other specified disorders of breast (principal); K92.1 Melena; R19.4 Change in bowel habit; Z87.19 Personal history of other diseases of the digestive system; R14.3 Flatulence; R92.8 Other abnormal and inconclusive findings on diagnostic imaging of breast
CPT/HCPCS: 74018; 77066; G0279

== ENCOUNTER → 2025-09-18 | Outpatient (CLI) | payer BC ==
[~2025-09-18] MED LIST changes: -KETO-204 PO; -METR-265 PO; -OMEP-173 PO; -PANT20TA6
== END ==
LOC: M PLARAD 11:47
PROVIDERS: ATTEND Student in an Organized Health Care Education/Training Program
DX: K92.1 Melena (principal); R19.4 Change in bowel habit; Z87.19 Personal history of other diseases of the digestive system; R14.3 Flatulence

== ENCOUNTER → 2025-09-19 | Outpatient (REF) | payer BC | LOC: M LAB REF 10:48 | PROVIDERS: ATTEND Student in an Organized Health Care Education/Training Program | DX: K92.1 Melena (principal); R19.4 Change in bowel habit; Z87.19 Personal history of other diseases of the digestive system; R14.3 Flatulence; Z83.719 Family history of colon polyps, unspecified ==

== ENCOUNTER 2025-10-01 20:19 | Emergency (ER) | payer BC ==
[~2025-10-01] VITALS: Ht 149.9 cm; Wt 84.7 kg
[2025-10-01] MEDS ORDERED: OMEP-173 PO (20:34)
[2025-10-01] MEDS ORDERED: PANT20TA6 (20:35)
[2025-10-01] MEDS: KETOROLAC 30 MG/ML 1 ML VIAL IV ONE (20:47)
[2025-10-01] MEDS: ONDANSETRON 4MG/2ML VIAL IV ONE (20:47)
[2025-10-01 21:00] LABS: BASO # 0.0 10^3/uL (0.0-0.2); BASO % 0.3 % (0.0-1.0); EOS # 0.0 10^3/uL (0.0-0.5); EOS % 0.2 % (0.0-3.0); LYMPH # 2.2 10^3/uL (1.5-5.0); LYMPH % 17.4 % (24.0-44.0); MONO # 1.1 10^3/uL (0.0-0.8); MONO % 8.2 % (2.0-8.0); NEUTROPHILS # 9.5 10^3/uL (1.5-8.5); NEUTROPHILS % 73.5 % (36.0-66.0); PLATELET COUNT, AUTOMATED 231 10^3/uL (150-450)
[2025-10-01] MEDS ORDERED: ISOVUE-370 76% 100 ML VIAL As Ordered ONE (21:16)
[2025-10-01 21:30] LABS: ALT/SGPT 24.0 U/L (7.0-40); AST/SGOT 25.0 U/L (<34)
[2025-10-01] MEDS: ONDANSETRON 4MG ORAL DISINTEGRATING TAB PO ONE (22:28)
[2025-10-01] MEDS: CIPROFLOXACIN 500 MG TABLET PO ONE (22:28)
[2025-10-01] MEDS: KETOROLAC TROMETHAMINE 10 MG TAB PO ONE (22:28)
[2025-10-01 22:30] VITALS: BP 104/60; TEMP 99.6; O2SAT 97
[2025-10-01] MEDS ORDERED: CIPR-249 PO (22:44)
[2025-10-01] MEDS ORDERED: ONDA-282 PO (22:44)
[2025-10-01] MEDS ORDERED: METR-265 PO (22:44)
[2025-10-01] MEDS ORDERED: KETO-204 PO (22:44)
== END 2025-10-01 22:55 | disposition home or self-care (01) ==
LOC: M ED 20:19
DX: K57.32 Diverticulitis of large intestine without perforation or abscess without bleeding (principal); Z79.1 Long term (current) use of non-steroidal anti-inflammatories (NSAID); Z79.2 Long term (current) use of antibiotics; Z79.899 Other long term (current) drug therapy
CPT/HCPCS: 74177; 80047; 80076; 83690; 85025; 93041; 96374; 99284; J1885; J2405; Q9967

== ENCOUNTER → 2025-10-21 | Outpatient (CLI) | payer BC ==
[~2025-10-21] MED LIST changes: +KETO-204 PO; +METR-265 PO; +NYST-38 PO; +OMEP-173 PO; +PANT20TA6
== END ==
LOC: M WHC 09:26
PROVIDERS: ATTEND Nurse Practitioner Family
DX: R92.2 Inconclusive mammogram (principal)
CPT/HCPCS: 76642; 77065; G0279